=== PATIENT | female | born 1960 | race Caucasian/White ===

== ENCOUNTER 2018-05-22 00:16 | Emergency (ER) | payer OTHER, SELFPAY ==
[2018-05-22 00:17] VITALS: BP 172/144; PULSE 85; RESP 18; TEMP 36.9; O2SAT 94; BMI 40.6
--- NOTE | 2018-05-22 00:35 | ED.DCSUM_ITS ---
- ER Visit Summary Date of Service: 05/22/18 Chief Complaint: Nasal drainage, sore throat and nonproductive cough History of Present Illness: The patient is a 57 F history of prior CVA, anemia and non-Hodgkin's follow-up. Patient states last 2 months she has had a cough, intermittent sore throat and decreased hearing out of her left ear. Cough is clear to white phlegm. She denies any fever. Denies any trouble swallowing. Has clear nasal drainage. No shortness of breath. Physical Examination: Well-appearing middle-age female. Vital signs blood pressure is elevated at 172 and 144 that will be rechecked. She is afebrile. Pulse ox is 94% on room air no signs of hypoxia. No distress. H EENT exam posterior pharynx normal. Left ear canal impacted with wax. No trouble swallowing or breathing. No erythema or exudate. Neck nontender no lymphadenopathy. Lungs clear to auscultation bilaterally. Heart regular rhythm no murmur. Abdomen soft nontender. She is moving all 4 extremities. No motor deficits. Neurologically she is awake and alert. She does have dysarthria of her speech due to her prior stroke. Test Results: None Emergency Department Course and Treatment: Nurses will Place Debrox eardrops in her left ear and try to irrigate the wax out. Her URI symptoms appear to be viral or allergy related. Clear nasal drainage. Nonproductive cough with clear lungs. Treatment Plan: Patient requested Tessalon Perles for the cough. She will be discharged with eardrops for the wax. Disposition: Discharge Impression: Left ear canal cerumen impaction irrigated by nursing staff Nasal drainage This note was generated with [employer] dictation software. It may contain incorrect words, spelling, and punctuation that were not noted in review of the chart prior to signing ED Disposition - Plan for ED Patient: Chief Complaint: Cold Sx Referrals: Óscar Brager MD [Primary Care Provider] -
[2018-05-22] MEDS: Carbamide Peroxide 15 ML Bottle 5 DRP OTIC (00:48)
--- NOTE | 2018-05-22 00:55 | ED.DEP ---
ED Disposition - Plan for ED Patient: Disposition: Home or Assisted Living Chief Complaint: Cold Sx Instructions: ED URI Viral, ED Cerumen Impaction, Home Care Prescriptions: Benzonatate [Tessalon Perle] 100 mg PO Q4H PRN PRN #20 cap PRN Reason: Cough Referrals: Óscar Barger MD [Primary Care Provider] - 1 Week if not improving Additional Instructions: Place 3 eardrops in both ears 2-3 times per day. This will help dry up and clear the wax. Tessalon Perles every 4 hours as needed for cough.
[2018-05-22 01:36] VITALS: BP 120/74
[2018-05-22] MEDS: Benzonatate 100 MG Capsule PO (01:41)
--- NOTE | 2018-05-22 01:41 | ED.RN ---
PT GIVEN WRITTEN AND VERBAL INSTRUCTIONS. PT SENT HOME WITH EAR DEBROX A VERBAL ORDER FROM DR. COLÓN. EDUCATED ON USE. PT AMBULATES OUT OF DEPT WITH DAUGHTER.
== END 2018-05-22 01:42 | disposition home or self-care (01) ==
LOC: ED 01:28
PROVIDERS: Emergency Provider Emergency Medicine; Family Provider Family Medicine; PCP Family Medicine
DX: H61.22 Impacted cerumen, left ear (principal); R03.0 Elevated blood-pressure reading, without diagnosis of hypertension; I69.322 Dysarthria following cerebral infarction; Z79.82 Long term (current) use of aspirin; Z79.899 Other long term (current) drug therapy; Z86.2 Personal history of diseases of the blood and blood-forming organs and certain disorders involving the immune mechanism; Z85.72 Personal history of non-Hodgkin lymphomas
CPT/HCPCS: 99283

== ENCOUNTER 2018-11-26 19:42 | Emergency (ER) | payer SELFPAY ==
[2018-09-15 11:14] VITALS: BMI 37.5
[2018-11-26 19:43] VITALS: BP 159/104; PULSE 75; RESP 15; TEMP 36.6; O2SAT 99; BMI 40.1
--- NOTE | 2018-11-26 20:32 | CT_ITS ---
STUDY: CT BRAIN WITHOUT CONTRAST REASON FOR EXAM: Female, 58 years old. Headache for 4 and 5 days RADIATION DOSAGE (If Supplied By Facility): CTDIvol = ( 44.99 ) mGy, DLP = ( 796.11 ) mGycm TECHNIQUE: Transaxial CT imaging of the brain was performed without administration of intravenous contrast material. Individualized dose optimization techniques were used for this CT. COMPARISON: 07/18/2017 FINDINGS: Normal soft tissue structures. Normal calvarium. There is mild cerebral atrophy with widening of the extra-axial spaces and ventricular dilatation. There are areas of decreased attenuation within the white matter tracts of the supratentorial brain, consistent with microvascular disease changes. Encephalomalacia and gliosis of the left frontoparietal lobe stable since the prior study. Old lacunar infarction left basal ganglia stable. Small infarctions all of the posterior left temporal lobe is also stable. Normal brainstem. Normal cerebellum. There is no intracranial hemorrhage. There are no findings of an acute ischemic infarction. There is mucoperiosteal inflammatory disease of the paranasal sinuses consistent with moderate chronic sinusitis. CT/Brain/Head without Contrast IMPRESSION: 1. Since 07/18/2017, stable exam. No acute intracranial hemorrhage or mass effect. 2. Old left MCA territory infarctions. Left basal ganglia lacunar infarction. 3. New moderate sinusitis but no air-fluid levels. Electronically Signed: Marito Aguilar MD at 21:24 EST , Service support ,
[2018-11-26] MEDS: DiphenhydrAMINE 50 MG/ML Syringe 25 MG IV (20:47)
[2018-11-26] MEDS: Metoclopramide 10 MG/2 ML Vial IV (20:47)
[2018-11-26] MEDS: 0.9% Normal Saline 1,000 ML 1000 ML IV (20:48)
[2018-11-26 21:13] LABS: Absolute Lymphocyte Count 1.38 X10^3/ul (0.83-4.51); Absolute Neutrophil Count 9.2 X10^3/uL (2.0-7.7); Anion Gap 9 (5-15); BUN 20 mg/dL (7-18); BUN/Creat Ratio 19.4 RATIO (10-20); Basophil# 0.02 X10^3/uL; Basophil% 0.2 % (0-1); Calcium,Total 8.8 mg/dL (8.5-10.1); Chloride 108 mmol/L (98-107); Creatinine, Serum 1.03 mg/dL (0.55-1.02); EST Glomerular Filtration Rate 58 mL/min (>60); Eosinophils% 0.9 % (0-5); Est Glom Filt Rate - Afr Amer 70 mL/min (>60); Estimated Creatinine Clearance 43.83 ml/min; Glucose 146 mg/dL (74-106); Hematocrit 41.3 % (37-47); Hemoglobin 13.2 g/dl (12.0-15.0); Lymphocyte # 1.38 X10^3/ul (4.0); Lymphocyte % 12.4 % (19-41); Mean Corpuscular Hgb 27.3 pg (27.0-32.0); Mean Corpuscular Volume 85.5 fL (81-99); Mean Platelet Vol. 10.5 fl (6.2-12.0); Monocyte# 0.38 X10^3/uL; Monocyte% 3.4 % (0-10); Neutrophil # 9.24 X10^3/uL (2.7-7.7); Neutrophil % 82.7 % (47-70); Platelet Count 301 K/mm3 (150-450); Potassium 3.9 mmol/L (3.5-5.1); RBC Distribution Width CV 14.3 % (11.6-14.6); RBC Distribution Width SD 44.1 fl (35.1-43.9); Red Blood Count 4.83 M/mm3 (4.2-5.4); Sodium Level 142 mmol/L (136-145); White Blood Count 11.2 K/mm3 (4.4-11.0)
[2018-11-26 21:25] LABS: POSITIVE COUNT NO; POSITIVE DIFFERENTIAL NO; POSITIVE MORPHOLOGY NO
--- NOTE | 2018-11-26 21:25 | CT_ITS ---
STUDY: CTA OF THE BRAIN REASON FOR EXAM: Female, 58 years old. HEADACHE X 1 WEEK,ELEVATED BP AND WBC RADIATION DOSAGE (If Supplied By Facility): CTDIvol = ( 39.36 ) mGy, DLP = ( 756.60 ) mGycm TECHNIQUE: CT angiography was performed with a multi-detector CT scanner. Data acquisition was obtained from the skull base through the vertex following intravenous administration of Isovue 370 100ML IV. MIP images were reconstructed from the axial data set. Post-processing of the angiographic images was performed, with multiplanar reformation and 3D reconstruction. Individualized dose optimization techniques were used for this CT. COMPARISON: None. FINDINGS: Normal bilateral petrous carotid arteries. Normal right cavernous carotid artery with a normal supraclinoid bifurcation. Normal left cavernous carotid artery with a normal supraclinoid bifurcation. Normal right A1 segments of the anterior cerebral artery. Normal left A1 segments of the anterior cerebral artery. Normal intact anterior communicating artery (ACOM). Normal bilateral A2 segments of the anterior cerebral arteries. Normal right M1 and M2 segments of the middle cerebral arteries, with a normal M1 bifurcation. Normal left M1 and M2 segments of the middle cerebral arteries, with a normal M1 bifurcation. There is non-visualization of the right posterior communicating artery (PCOM). There is non-visualization of the left posterior communicating artery (PCOM). Normal bilateral vertebral arteries. Normal basilar artery with a normal basilar bifurcation. The visualized bilateral superior cerebellar (SCA) arteries are normal. Normal bilateral P1, P2 and visualized P3 segments of the posterior cerebral arteries. There is no demonstrated aneurysm of the [place]ark[place]. There is no demonstrated abnormality of the visualized brain. CT/CTA Head W/WO Contrast IMPRESSION: Normal clark's point of [place] without a demonstrated aneurysm or hemodynamically significant stenosis. Electronically Signed: Erin Zimmerman MD at 0:33 EST Tel , Service support ,
--- NOTE | 2018-11-26 21:25 | CT_ITS ---
STUDY: CTA NECK WITH CONTRAST REASON FOR EXAM: Female, 58 years old. Headache. RADIATION DOSAGE (If Supplied By Facility): CTDIvol = ( 39.36 ) mGy, DLP = ( 756.60 ) mGycm TECHNIQUE: CT angiography with multi-detector data acquisition was performed from the aortic arch to the skull base following intravenous administration of Isovue 370 100ML IV. MIP images were reconstructed from the axial data set. Post-processing of the angiographic images was performed, with multiplanar reformation and 3D reconstruction. Individualized dose optimization techniques were used for this CT. COMPARISON: None. FINDINGS: AORTIC ARCH: There is atherosclerotic calcific plaque formation of the aortic arch and great vessels arising from the aortic arch, without a hemodynamically significant stenosis. There is a normal origin of the brachiocephalic, left common carotid, and left subclavian arteries. RIGHT CAROTID ARTERIES: There is atherosclerotic tortuous elongation of the right common carotid artery. Normal right common carotid bulb. Normal origin of the right internal carotid (ICA) artery without a hemodynamically significant stenosis. There is atherosclerotic tortuous elongation of the cervical portion of the right internal carotid artery. Normal origin of the right external carotid artery (ECA). LEFT CAROTID ARTERIES: There is atherosclerotic tortuous elongation of the left common carotid artery. Normal left common carotid bulb. Normal origin of the left internal carotid (ICA) artery without a hemodynamically significant stenosis. There is atherosclerotic tortuous elongation of the cervical portion of the left internal carotid artery. Normal origin of the left external carotid artery (ECA). VERTEBRAL ARTERIES: Normal bilateral vertebral arteries. CT/CTA Neck W/WO Contrast IMPRESSION: No occlusions. No hemodynamically significant stenosis. Electronically Signed: Aneesh Taylor MD at 23:22 EST , Service support ,
[2018-11-26 21:31] LABS: Erythrocyte Sedimentation Rate 8 mm/hr (0-30)
--- NOTE | 2018-11-26 22:03 | ED.DCSUM_ITS ---
- ER Visit Summary Date of Service: 11/26/18 Chief Complaint: [Headache] History of Present Illness: The patient is a 58 F [presents the emergency room with complaint of headache that started a week ago. Patient states it came on gradually but it never has completely gone away. Patient rates her headache currently is a 10 out of 10. She has had nausea and vomiting that just started on the way to the emergency department tonight. Patient denies any recent illness. She denies any falls or head injuries. Patient has a history of prior stroke but she could not really tell me if it was hemorrhagic versus ischemic. Patient does complain of photophobia. Patient has had a history of migraines in the past but this feels different. Nobody else at home has similar headache and there is no concern for carbon monoxide.] Physical Examination: [HEENT-PERRLA, EOMI. Cranial nerves II through XII grossly intact. TMs clear. Mucous membranes moist. No adenopathy. Cardiovascular-regular rate and rhythm without murmur or ectopy Lungs-clear to auscultation, chest wall stable without crepitus or subcu emphysema Abdomen-normoactive bowel sounds, soft, nontender, no rebound or rigidity, no peritoneal signs. Neuro ubus-[id number] and heel ritchie testing within normal limits, negative Romberg, negative pronator drift, fundi benign Extremities-intact ?4, normal range of motion, normal pulses, atraumatic] Test Results: [CBC with differential showing 11.2, hemoglobin 13, hematocrit 41. Chemistries unremarkable. Sed rate was 8. CT scan of the brain without contrast showed old left MCA infarct without evidence of hemorrhage. CTA of the head neck ordered and pending.] Emergency Department Course and Treatment: [Patient initially was medicated with Reglan and Benadryl as well as a liter normal same fluid bolus however she continued to complain of severe headache and was given 4 mill grams of morphine.] Treatment Plan: [Care of patient turned over to evening physician awaiting re sults of CTA and reevaluation of patient.] Disposition: [Pending] Impression: [Cephalgia] This note was generated with [employer] dictation software. It may contain incorrect words, spelling, and punctuation that were not noted in review of the chart prior to signing ED Disposition - Plan for ED Patient: Referrals: Óscar Barger MD [Primary Care Provider] -
[2018-11-26] MEDS: Morphine 4 MG/ML Syringe IV (22:34)
[2018-11-26 22:37] VITALS: BP 180/93; PULSE 78; RESP 16; O2SAT 99
[2018-11-26 22:43] LABS: Bacteria 0 SEEN /hpf (None Seen); Mucous, Urine 0 SEEN /hpf (<or=2+); Red Blood Cells-Urine 0 SEEN /hpf (0-5)
[2018-11-26 22:49] LABS: Color, Urine Yellow (Yellow); Glucose, Dipstick Normal (Normal); Ketone-Dipstick Negative (Negative); Leukocyte Esterase-Dipstick 100 /ul (Negative); Nitrite-Dipstick Negative (Negative); Occult Blood-Urine Negative /ul (Negative); Protein-Dipstick 15 mg/dl (Negative); Urine Bilirubin Dipstick Negative (Negative); Urine Clarity Sl. Cloudy (Clear); Urine Urobilinogen Normal (Normal)
[2018-11-26 23:03] LABS: Squamous Epithelial Cells - UA 0-5 SEEN /hpf (5-10); White Blood Cells 5-10 SEEN /hpf (0-5)
--- NOTE | 2018-11-27 01:16 | ED.DEP ---
ED Disposition - Plan for ED Patient: Instructions: ED Cephalgia Unspecified Referrals: Óscar Barger MD [Primary Care Provider] - Curtis Hernández MD [STAFF PHYSICIAN] -
[2018-11-27 01:28] VITALS: BP 159/86; PULSE 68; RESP 16; O2SAT 99
== END 2018-11-27 01:31 | disposition home or self-care (01) ==
LOC: ED 20:58
PROVIDERS: Emergency Provider Emergency Medicine; Family Provider Family Medicine; PCP Family Medicine
DX: R51 Headache (principal); R11.2 Nausea with vomiting, unspecified; I10 Essential (primary) hypertension; Z79.82 Long term (current) use of aspirin; Z79.899 Other long term (current) drug therapy; Z86.73 Personal history of transient ischemic attack (TIA), and cerebral infarction without residual deficits; Z85.118 Personal history of other malignant neoplasm of bronchus and lung; Z85.72 Personal history of non-Hodgkin lymphomas
CPT/HCPCS: 36591; 70450; 70496; 70498; 80048; 81001; 85025; 85652; 96361; 96374; 96375; 99282; J7030; Q9967; A4216

== ENCOUNTER → 2019-03-24 09:27 | Outpatient (CLI) | payer OTHER, SELFPAY ==
--- NOTE | 2019-03-24 09:28 | NM_ITS ---
CLINICAL: 58-year-old female with reported history of lymphoma and apparent rheumatoid arthritis. WHOLE BODY 99m Tc MDP RADIONUCLIDE BONE SCINTIGRAPHY COMPARISON: None available FINDINGS: Following the intravenous administration of 26.3 mCi of 99m Tc MDP, whole body bone images reveal: 1. Intense increased radiopharmaceutical concentration is identified in the distal right femoral metaphysis. 2. Increased uptake is noted in the fifth lumbar vertebra posteriorly on the left-right, medial and lateral tibial compartments of the right knee, patellofemoral compartment of the left knee, the bilateral midfoot, the right forefoot. 3. The remaining skeletal structures are scintigraphically unremarkable with normal-appearing renal images and urinary bladder activity identified. An increase in uptake is demonstrated in the femoral and tibial components of the left knee prosthesis. Facilitated tracer distribution is visualized in the bilateral maxilla and inter-orbital aspect of the skull consistent with periostitis. NM/Bone Scan Whole Body IMPRESSION: 1. The increase in radiopharmaceutical concentration identified in the distal right femoral metaphysis may be further investigated with plain film radiography secondary to the intensity and spatial distribution of uptake. 2. Degenerative arthritis appears expressed in the fifth lumbar vertebra, bilateral midfoot, the right forefoot, tibial compartments of the right knee and patellofemoral compartment of the left knee (in the absence of patellar hardware placement). Electronically Signed: Noble Tripp DO at 23:29 EDT Tel , Service support ,
== END ==
PROVIDERS: Family Provider Family Medicine; PCP Family Medicine; Referring Provider Internal Medicine Medical Oncology; Visit Provider Internal Medicine Medical Oncology
DX: M25.561 Pain in right knee (principal); C85.95 Non-Hodgkin lymphoma, unspecified, lymph nodes of inguinal region and lower limb
CPT/HCPCS: 78306

== ENCOUNTER → 2019-03-29 08:06 | Outpatient (CLI) | payer OTHER, SELFPAY ==
--- NOTE | 2019-03-29 08:06 | CT_ITS ---
HISTORY: NHL monitoring, hypertension, . TECHNIQUE: Helically acquired images were obtained of the abdomen and pelvis following the intravenous administration of 100mL ml of Isovue 300 Iodinated contrast. 2D reformats. Oral contrast was administered. A radiation dose optimization technique was used for this scan. COMPARISON: Nuclear medicine bone scan from March 24, 2019. CT scan of the abdomen and pelvis from January 14, 2017. CT scan of the abdomen and pelvis from September 21, 2016. She FINDINGS: # of images incl. paperwork: 448 LUNG BASES: Clear. CT abdomen: Mild degenerative disc disease in lower lumbar spine facet arthropathy persists The gallbladder is slightly distended. Liver, spleen, pancreas, and adrenal glands, are normal. Indurated fat within the root of the mesentery persists. The degree of induration within this fat is less than the January 14, 2017 study. The lymphadenopathy and masses of tissue within this location on the September 21, 2016 study has greatly diminished. Hypodense mass exophytic to the inferior pole of the right kidney, likely representing a benign cyst, is unchanged. The left kidney is normal. The aorta is disease with atherosclerotic plaque, but without aneurysm or dissection. CT pelvis: No ascites is present. The uterus and ovaries are atrophic. The appendix is normal. Series 3 image 83. The bladder is decompressed. Is normal. Ingested oral contrast is all the way into the rectum CT/Abdomen/Pelvis WITH Contrast IMPRESSION: Continued indurated fat at the root of the mesentery around and inferior to the pancreas. The degree of induration of this fat is much less than September 21, 2016, and less than January 14, 2017, the most recent comparison CT. This is consistent with scarring related to the patient's non-Hodgkin's lymphoma. There are several splenule's inferior to the spleen in the left hemiabdomen. These are similar to the previous study without enlargement. Individualized dose optimization techniques were used for this CT. at 9423 Reported and signed by: Frankie Jones MD Electronically Signed: Frankie Jones MD at 21:54 EDT Tel , Service support ,
--- NOTE | 2019-03-29 08:06 | CT_ITS ---
HISTORY: NHL monitoring, hypertension, . TECHNIQUE: Helically acquired images were obtained of the chest following the intravenous administration of 100mL ml of Isovue 300 Iodinated contrast. as per pulmonary angiogram protocol with 2D MIP reconstructions. A radiation dose optimization technique was used for this scan. COMPARISON: Most recent CT scan through the chest as part of a PET/CT dated January 11, 2017. Nuclear medicine bone scan from March 24, 2019. CT scan of the abdomen and pelvis from January 14, 2017. PET CT from January 11, 2017. FINDINGS: # of images incl. paperwork: [id number] Left chest wall left IJ access single-lumen port. The catheter tip may have been slightly pulled back. By believe it is within the brachiocephalic vein. There is a loop of catheter within the left neck near the venotomy site. Lungs are clear but for trace basilar atelectasis. No effusions. Within the thoracic spinebony alignment is normal. Vertebral body height is normal. Multilevel degenerative disc disease is mild. Disc disease is manifested by loss of disc height, endplate sclerosis, and small anterior enthesophytes Facets are well aligned. No rib lesions are perceived. Heart is not enlarged. Thoracic aorta is normal. No aneurysms, stenoses, dissections, nor occlusions. No axillary or mediastinal adenopathy. No pulmonary emboli. CT/Chest WITH Contrast IMPRESSION: No pulmonary embolism, aortic aneurysm, or aortic dissection. No evidence for non-Hodgkin's lymphoma within the chest Individualized dose optimization techniques were used for this CT. at 2147 Reported and signed by: Frankie Jones MD Electronically Signed: Frankie Jones MD at 21:46 EDT Tel , Service support ,
== END ==
PROVIDERS: Family Provider Family Medicine; PCP Family Medicine; Referring Provider Internal Medicine Medical Oncology; Visit Provider Internal Medicine Medical Oncology
DX: C85.95 Non-Hodgkin lymphoma, unspecified, lymph nodes of inguinal region and lower limb (principal)
CPT/HCPCS: 71260; 74177; Q9967; A4216

== ENCOUNTER → 2019-04-14 08:56 | Outpatient (CLI) | payer SELFPAY ==
[2019-04-06 15:05] VITALS: BMI 40.1
--- NOTE | 2019-04-14 08:57 | RAD_ITS ---
STUDY: X-RAY - RIGHT FEMUR REASON FOR STUDY: Female, 58 years old. Knee and hip pain. History of bone cancer, now in remission. TECHNIQUE: Frontal and lateral view(s) of the femur on 4 films. COMPARISON: None. FINDINGS: There is degenerative periarticular spurring of the femoral condyles and tibial plateaus, as well as degenerative periarticular spurring at the apex of the patella. There is tricompartmental degenerative narrowing of the knee joint spaces and slight lateral subluxation of the tibia relative to the distal femur. Normal visualized soft tissue structure. There is no demonstrated knee joint effusion. There is no demonstrated fracture or destructive process. RAD/Femur Min 2 Views IMPRESSION: Tricompartmental degenerative arthrosis of the right knee, as noted. The right femur is otherwise unremarkable. Electronically Signed: Carlos Waldrop MD at 13:29 EDT , Service support ,
== END ==
PROVIDERS: Family Provider Family Medicine; PCP Family Medicine; Referring Provider Orthopaedic Surgery; Visit Provider Orthopaedic Surgery
DX: M25.561 Pain in right knee (principal)
CPT/HCPCS: 73552

== ENCOUNTER 2019-04-14 10:57 | Emergency (ER) | payer OTHER, SELFPAY ==
[2019-04-14 10:08] VITALS: BMI 40.1
[2019-04-14 10:58] VITALS: BP 171/97; PULSE 73; RESP 17; TEMP 36.8; O2SAT 95; BMI 40.4
--- NOTE | 2019-04-14 11:15 | ED.DCSUM_ITS ---
History of Present Illness Chief Complaint: Lower Extremity Injury Detail of Chief Complaint: Right leg infection, concern for DVT Informant: Patient Onset: Days, - - 3-4 Context: Gradual Onset Current Severity: Mild Maximum Severity: Mild Narrative: Patient reports having some flea bites on her legs that she has been scratching. She has an area that appears to be infected. She saw an orthopedic surgeon today due to a history of cancer and increased uptake on a recent scan along her right knee. It appears the patient has osteoarthritis. Because she has an infe ction on her leg injections into the knee were delayed at this time. Patient went to the now clinic where there was concern for possible DVT so she was sent to the emergency room. 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 Status: Acute (4) Osteoarthritis of both knees Status: Acute (5) Hypertension Status: Chronic Past Medical History - Allergies and Home Meds Allergies/Adverse Reactions: Allergies No Known Allergies Allergy (Verified 04/14/19 10:57) Primary Care Physician: Mejia Garces DO [STAFF PHYSICIAN] - As Needed Óscar Barger MD [Primary Care Provider] - 1-2 Weeks Prior records reviewed: Yes Past Medical History: - - Reviewed Surgical History: arthroscopy, knee, rotator cuff repair Lives: With Family Smoking Status: Never smoker Review of Systems General: Denies: Chills, Fever Cardiovascular: Denies: Chest pain Respiratory: Denies: Dyspnea, Cough Musculoskeletal: Reports: Arthralgias Skin: Reports: Wounds Physical Exam Vital Signs/Narrative: Vital Signs Temp Pulse Resp BP Pulse Ox 04/14/19 10:58 98.3 F 73 17 171/97 H 95 Inital Vital Signs reviewed: Yes General: Well nourished, Well developed ENT: Moist mucous membranes Cardiovascular: Regular rate, Regular rhythm Respiratory: No distress, CTA bilaterally Abdomen: Soft, Nontender Extremities: - - Patient has a 1.5 cm round scabbed lesion on the medial right lower calf. There are also 2 pustules noted. There is mild erythema around the area measuring 9 x 7 cm. No posterior calf tenderness or palpable cords are noted. Neurological: Alert, - - Slow speech noted from prior CVA, unchanged from baseline Psychological: Normal affect Diagnostic/Tx/Re-eval Venous ultrasound of the leg shows no evidence of DVT. - Medical Decision Making Patient presents the scabbed wound along with 2 pustules to the medial right lower leg with surrounding mild cellulitis. She was treated with a course of Bactrim and Keflex. ED Disposition - Plan for ED Patient: Disposition: Home or Assisted Living Instructions: Cellulitis Prescriptions: Smz/Tmp Ds [Bactrim Ds] 1 tab PO BID #14 tab Prescription Printed Smz/Tmp Ds [Bactrim Ds] 1 tab PO BID #14 tab Transmission Status: Pending to [facility] Cephalexin [Keflex] 500 mg PO Q6 #40 cap Prescription Printed Cephalexin [Keflex] 500 mg PO Q6 #40 cap Transmission Status: Pending to [facility] Referrals: Óscar Barger MD [Primary Care Provider] - 1-2 Weeks Mejia Garces DO [STAFF PHYSICIAN] - As Needed
--- NOTE | 2019-04-14 11:15 | VDLE_ITS ---
Reason For Study: pain RIGHT GSV is normal. CFV is compressible, spontaneous, phasic, competent and demonstrates normal augmentation. FV is compressible, spontaneous, phasic, competent and demonstrates normal augmentation. POP V is compressible, spontaneous, phasic, competent and demonstrates normal augmentation. T/P Trunk is compressible. PTV is compressible. RT PerV is compressible. Procedure Exam performed portable in ED. The exam was diagnostic. A preliminary report was called and/or faxed to Dr. Partida. Interpretation Summary There is no evidence of right lower extremity deep vein thrombosis. Right greater saphenous vein appears patent and compressible segmentally. Ordering Physician: Tracy Partida Performed By: Iker Rico RVT
[2019-04-14 11:36] VITALS: RESP 14
[2019-04-14] MEDS: Smz/Tmp Ds Tablet 1 TABLET PO (12:33)
[2019-04-14] MEDS: Cephalexin 250 MG Capsule 500 MG PO (12:33)
== END 2019-04-14 12:36 | disposition home or self-care (01) ==
PROVIDERS: Emergency Provider Emergency Medicine; Family Provider Family Medicine; PCP Family Medicine
DX: S81.851A Open bite, right lower leg, initial encounter (principal); L03.115 Cellulitis of right lower limb; W57.XXXA Bitten or stung by nonvenomous insect and other nonvenomous arthropods, initial encounter; Y93.9 Activity, unspecified; Y92.9 Unspecified place or not applicable; M17.0 Bilateral primary osteoarthritis of knee; I10 Essential (primary) hypertension; Z85.6 Personal history of leukemia; Z85.72 Personal history of non-Hodgkin lymphomas; Z86.73 Personal history of transient ischemic attack (TIA), and cerebral infarction without residual deficits; Z79.82 Long term (current) use of aspirin; Z79.899 Other long term (current) drug therapy
CPT/HCPCS: 93971; 99283

== ENCOUNTER → 2019-04-26 06:12 | Outpatient (CLI) | payer OTHER, SELFPAY ==
[2019-04-14 10:58] VITALS: BMI 40.4
--- NOTE | 2019-04-26 06:15 | MRI_ITS ---
STUDY: MRI RIGHT KNEE REASON FOR EXAM: Female, 58 years old. Knee pain and swelling, abnormal bone scan, history of lymphoma. TECHNIQUE: Standardized fat and water weighted pulse sequences were obtained in all 3 orthogonal planes. COMPARISON: X-ray 04/14/2019, bone scan 03/24/2019 FINDINGS: Maceration of the posterior horn and body of the medial meniscus. Medial compartment failure with full-thickness chondral loss of the weightbearing medial femoral condyle and medial tibial plateau with bone on bone florid osteophyte formation. Normal medial collateral ligamentous complex (MCL). Normal distal semimembranosus, gracilis and semitendinosus tendons. Maceration of the body and posterior horn of the lateral meniscus. Lateral compartment failure with full-thickness chondral loss of the lateral femoral condyle lateral tibial plateau with subchondral cyst formation of the lateral femoral condyle and mild edema of the lateral femoral condyle lateral tibial plateau with florid osteophyte formation. Normal proximal tibiofibular articulation. Normal lateral collateral (fibular) ligament. Normal popliteus tendon. Normal biceps femoris tendon. Normal anterior cruciate ligament (ACL). Normal posterior cruciate ligament (PCL). Normal congruent patellofemoral articulation. Normal hyaline cartilage of the patellofemoral compartment. Normal medial and lateral patellar retinaculum. Normal quadriceps tendon. Normal patellar tendon. Normal Hoffa's fat pad. Moderate joint effusion with the thickened enhancing synovium suggestive of synovitis. The soft tissues are unremarkable. The otherwise visualized osseous structures are unremarkable. MRI/Lower Ext Joint Only W/WO Cont IMPRESSION: Severe arthrosis with medial and lateral compartment failure with moderate joint effusion with synovitis. No marrow replacing lesion. Electronically Signed: Noble Mina MD at 10:29 EDT Tel , Service support ,
[2019-04-26 06:43] LABS: Creatinine, Serum 1.17 mg/dL (0.55-1.02); EST Glomerular Filtration Rate 50 mL/min (>60); Est Glom Filt Rate - Afr Amer 61 mL/min (>60)
== END ==
PROVIDERS: Family Provider Family Medicine; PCP Family Medicine; Referring Provider Orthopaedic Surgery; Visit Provider Orthopaedic Surgery
DX: M17.0 Bilateral primary osteoarthritis of knee (principal); M25.561 Pain in right knee
CPT/HCPCS: 36415; 73723; 82565; A9575; J7030

== ENCOUNTER → 2019-06-21 12:40 | Outpatient (CLI) | payer OTHER, SELFPAY ==
[2019-05-30 14:41] VITALS: BMI 39.6
--- NOTE | 2019-06-21 12:49 | RAD_ITS ---
STUDY: X-RAY - LUMBAR SPINE REASON FOR EXAM: Female, 58 years old. Lower extremity pain. TECHNIQUE: AP and lateral view(s) of the lumbar spine were obtained. COMPARISON: None FINDINGS: Normal lumbar lordosis. There is no substantial scoliosis. There is a normal alignment of the vertebrae. Mild degree of anterior spondylosis at the L3-L4 and L4-L5 levels. Mild degree of disc space narrowing at the L4-L5 and L5-S1 levels. The soft tissue structures are unremarkable. RAD/Lumbar Spine 2 or 3 Views IMPRESSION: Degenerative changes of the spine, as detailed above. Electronically Signed: Etienne Chavez, at 15:43 EDT , Service support ,
== END ==
PROVIDERS: Family Provider Internal Medicine; PCP Internal Medicine; Referring Provider Anesthesiology Pain Medicine; Visit Provider Anesthesiology Pain Medicine
DX: M79.606 Pain in leg, unspecified (principal)
CPT/HCPCS: 72100

== ENCOUNTER → 2019-06-27 09:55 | Outpatient (CLI) | payer OTHER, SELFPAY ==
[2019-06-27 09:20] VITALS: BMI 39.4
[2019-06-27 12:48] LABS: Anion Gap 8 (5-15); BUN 26 mg/dL (7-18); BUN/Creat Ratio 18.3 RATIO (10-20); Chloride 108 mmol/L (98-107); Creatinine, Serum 1.42 mg/dL (0.55-1.02); EST Glomerular Filtration Rate 40 mL/min (>60); Est Glom Filt Rate - Afr Amer 48 mL/min (>60); Glucose 103 mg/dL (74-106); Potassium 4.2 mmol/L (3.5-5.1); Sodium Level 142 mmol/L (136-145)
== END ==
PROVIDERS: Family Provider Internal Medicine; PCP Internal Medicine; Visit Provider Internal Medicine
DX: N18.3 Chronic kidney disease, stage 3 (moderate) (principal)
CPT/HCPCS: 36415; 80048

== ENCOUNTER → 2019-08-16 10:34 | Outpatient (CLI) | payer OTHER, SELFPAY ==
[2019-08-01 08:18] VITALS: BMI 39.4
--- NOTE | 2019-08-16 10:35 | RAD_ITS ---
STUDY: X-RAY - RIGHT KNEE REASON FOR EXAM: Female, 59 years old. Pain and swelling. TECHNIQUE: 4 view(s) of the knee. COMPARISON: None. FINDINGS: Normal visualized distal femur. Normal visualized proximal tibia and fibula. There is arthrosis of the proximal tibiofibular articulation. There is no acute fracture, dislocation or destructive osseous pathology. There is severe degenerative arthrosis of the medial femorotibial compartment with severe joint space narrowing. There is severe degenerative arthrosis of the lateral femorotibial compartment with severe joint space narrowing. There is severe degenerative arthrosis of the patellofemoral articulation. There is no demonstrated joint effusion. The soft tissue structures are unremarkable. RAD/Knee 4 or More Views IMPRESSION: Marked degenerative changes of the knee without acute fracture or dislocation. Electronically Signed: Bladimir Garcia DO at 17:47 EST Tel [phone], Service support ,
== END ==
PROVIDERS: Family Provider Family Medicine; PCP Internal Medicine; Referring Provider Orthopaedic Surgery; Visit Provider Orthopaedic Surgery
DX: M25.561 Pain in right knee (principal)
CPT/HCPCS: 73564

== ENCOUNTER → 2019-08-24 09:27 | Outpatient (CLI) | payer OTHER, SELFPAY ==
[2019-08-24 08:54] VITALS: BMI 39.4
--- NOTE | 2019-08-24 10:04 | EKG12_ITS ---
Test Reason : PRE-OP Blood Pressure : / mmHG Vent. Rate : 070 BPM Atrial Rate : 070 BPM P-R Int : 150 ms QRS Dur : 088 ms QT Int : 436 ms P-R-T Axes : 049 -27 052 degrees QTc Int : 470 ms Normal sinus rhythm Minimal voltage criteria for LVH, may be normal variant Borderline ECG Confirmed by KAYLA MEYER, RUDI ([id number]), desk editor ISHA SHIPMAN ([id number]) on 08/29/2019 1:05:06 PM Referred By: Dayron Randle Confirmed By:KASSY GARZA MD
[2019-08-24 12:34] LABS: Absolute Lymphocyte Count 1.51 X10^3/uL (0.83-4.51); Basophil# 0.08 X10^3/uL; Basophil% 0.9 % (0-1); Eosinophil# 0.24 X10^3/uL; Eosinophils% 2.8 % (0-5); Hematocrit 40.3 % (37-47); Lymphocyte # 1.51 X10^3/ul (4.0); Lymphocyte % 17.9 % (19-41); Mean Corp Hgb Conc 32.3 g/dL (32-36); Mean Corpuscular Hgb 28.6 pg (27.0-32.0); Mean Corpuscular Volume 88.6 fL (81-99); Mean Platelet Vol. 11.3 fl (6.2-12.0); Monocyte# 0.59 X10^3/uL; NRBC Flagged by Analyzer 0 % (0-5); Neutrophil # 5.99 X10^3/uL (2.7-7.7); Platelet Count 314 K/mm3 (150-450); RBC Distribution Width CV 13.2 % (11.6-14.6); RBC Distribution Width SD 42.6 fl (35.1-43.9); Red Blood Count 4.55 M/mm3 (4.2-5.4); White Blood Count 8.4 K/mm3 (4.4-11.0)
[2019-08-24 12:49] LABS: ALB/GLOB Ratio 1.4 RATIO (0.9-2.4); AST(SGOT) 14 U/L (15-37); Alanine Aminotransfer ALT/SGPT 22 U/L (13-56); Albumin, Serum 3.8 g/dL (3.2-5.0); Alkaline Phosphatase 109 U/L (45-117); Anion Gap 7 (5-15); BUN 16 mg/dL (7-18); Calcium,Total 8.9 mg/dL (8.5-10.1); Chloride 108 mmol/L (98-107); Creatinine, Serum 1.14 mg/dL (0.55-1.02); EST Glomerular Filtration Rate 52 mL/min (>60); Est Glom Filt Rate - Afr Amer 62 mL/min (>60); Globulin 2.8 g/dL (2.2-4.2); Glucose 111 mg/dL (74-106); Potassium 3.9 mmol/L (3.5-5.1); Protein, Total 6.6 g/dL (6.4-8.2); Sodium Level 142 mmol/L (136-145); Thyroid Stim Hormone (TSH) 2.78 uIU/mL (0.358-3.74)
== END ==
PROVIDERS: Family Provider Internal Medicine; PCP Internal Medicine; Referring Provider Nurse Practitioner Family; Visit Provider Nurse Practitioner Family
DX: M17.11 Unilateral primary osteoarthritis, right knee (principal)
CPT/HCPCS: 36415; 80053; 84443; 85025; 93005

== ENCOUNTER 2019-09-12 10:13 | Observation (INO) | payer OTHER, SELFPAY ==
[2019-08-16 11:53] VITALS: BMI 39.4
[2019-09-01 15:34] VITALS: BMI 36.1
[2019-09-05 08:41] VITALS: BP 149/71; PULSE 72; RESP 16; TEMP 37.4; O2SAT 98; BMI 38.5
[2019-09-12] VITALS (12 sets, daily range): BP systolic 117–154; BP diastolic 59–81; PULSE 71–85; RESP 16–18; TEMP 36.4–36.9; O2SAT 90–100; BMI 39.1
[2019-09-12] MEDS: Scopolamine 1mg/72hr Patch 1 PATCH TRANSDERM. (06:15)
[2019-09-12] MEDS: Gabapentin 600 MG Tablet PO (06:59)
[2019-09-12] MEDS: Magnesium Sulfate 4gm/100mL 4 GM/100 ML IV.SOLN. IV (06:59)
[2019-09-12] MEDS: Acetaminophen 500 MG Tablet 1000 MG PO ×3 (07:00→21:06)
[2019-09-12] MEDS: Lactated Ringers 1,000 ML 100 ML IV (07:03)
--- NOTE | 2019-09-12 07:31 | PCM.HP.BLA ---
History and Physical Date of Admission: 09/12/19 Intake Vital Signs 08/16/19 Body Mass Index (BMI) 39.4 Intake Visit Reasons: right knee Is patient in pain?: Yes Pain scale (1-10): 9 Allergies No Known Allergies Allergy (Verified 08/16/19 11:53) Medications aspirin 325 mg tablet,delayed release 325 mg PO DAILY tab 05/30/19 [History Confirmed 08/16/19] citalopram 40 mg tablet 40 mg PO DAILY #90 tab 05/30/19 [Rx Confirmed 08/16/19] dicyclomine 20 mg tablet 20 mg PO BID #180 tab 05/30/19 [Rx Confirmed 08/16/19] fluticasone propionate 50 mcg/actuation nasal spray,suspension 2 spray INTRANASAL DAILY 05/30/19 [History Confirmed 08/16/19] multivitamin tablet 1 tab PO DAILY 05/30/19 [History Confirmed 08/16/19] simvastatin 10 mg tablet 10 mg PO QHS #90 tab 05/30/19 [Rx Confirmed 08/16/19] amlodipine 5 mg tablet 5 mg PO DAILY #30 tab 06/27/19 [Rx Confirmed 08/16/19] tramadol 50 mg tablet 50 mg PO QHS 06/27/19 [History Confirmed 08/16/19] sumatriptan 25 mg tablet See Rx Instructions .ROUTE .COMPLEX #20 tab 07/06/19 [Rx Confirmed 08/16/19] bedside commode #1 ea 08/01/19 [Rx Confirmed 08/16/19] blood pressure monitor kit See Rx Instructions .ROUTE .MEDSUPPLY #1 ea 08/01/19 [Rx Confirmed 08/16/19] compression stocking,knee high,regular,large circumfer. See Rx Instructions .ROUTE .MEDSUPPLY #2 ea 08/01/19 [Rx Confirmed 08/16/19] tramadol 50 mg tablet 50 mg PO Q8H PRN #42 tab 08/16/19 [Rx Confirmed 08/16/19] [facility] Medical History (Updated 06/27/19 @ 12:47 by Berto Najera MD) Colitis (Chronic) Non-Hodgkin lymphoma in remission (Inactive) Limb weakness (Chronic) Difficulty balancing (Chronic) Knee pain (Chronic) Severe headache (Chronic) History of stroke (Resolved) Stroke (Resolved) Enteritis (Chronic) Rhinitis (Chronic) Hyperlipidemia (Chronic) Depressive disorder (Chronic) Surgical History (Updated 05/30/19 @ 14:57 by Ariana Moe) History of delivery (Acute) History of colonoscopy (Acute) History of total left knee replacement (Acute) History of (Inactive) History of tonsillectomy (Inactive) History of total left knee replacement (Inactive) S/P left rotator cuff repair (Inactive) S/P right knee arthroscopy (Inactive) Family History (Updated 12/24/17 @ 13:36 by Consuelo Carrillo) Father Hypertension CVA (cerebral vascular accident) Mother Diabetes Hypertension CVA (cerebral vascular accident) Social History (Updated 08/16/19 @ 15:08 by Mejia Garces DO) Smoking Status: Never smoker alcohol intake: never substance use type: does not use what type of physical activity do you participate in: none HPI right knee: Details: Parts of this documentation were recorded by a scribe, this documentation accurately reflects the service provided and the decisions made by me, Mejia Garces DO 08/16/19 2136. BRYAN WEISS is a 59 year old F here today for right knee pain that is constant, she is using tramadol nightly prescribed by Dr. Montiel. She is ambulating with an antalgic gait and lacks full extension with ambulation. She complains of pain that increases with activity and especially with stairs. Denies numbness, tingling or other associated symptoms. Patient does take regular strength Aspirin daily. 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 ROS Musc Reports as per HPI, Reports abnormal walking, Reports joint pain, Reports limited joint movement, Denies numbness, Reports stiffness, Denies tingling Skin/Breast Reports system reviewed and no additional complaints, except as docu Neuro Yes system reviewed and no additional complaints, except as docu, Yes as per HPI, Yes abnormal walking, No numbness, No tingling Ortho Exam Right Knee Skin/Wound: No erythema, No ecchymosis, No swelling Homans Sign: No 1+: Effusion Knee ROM: No ROM-Extension -20 to 0 (32), No ROM-Flexion 0-140 (80) Examination: Yes Med jt line tenderness, Yes Lat jt line tenderness, Yes Crepitus, Yes Pain with flexion Stability: NML: Anterior Drawer, NML: Posterior Drawer, NML: Valgus 30, NML: Varus 30 Patella Translation: 1 Apprehension with Lateral Translation: No KNEE: Neuro intact, pulses 1 out of 4 bilaterally (faint) General: Awake alert no acute distress Psychologic: Mood appropriate cooperative Left Knee Patella Translation: 1 Supplemental Info 08/16/2019 x-ray right knee severe tricompartmental DJD [id number] joint space collapse large bone spurs Assessment & Plan Problems 1. Primary osteoarthritis of right knee M17.11 Plan Explained that she has bone on bone OA noted in all compartments. Reviewed the TKA procedure. REviewed the options for treatment of her ankle and foot OA and she can try a brace during the recovery from TKA. Due to her stiffness she is likely to require aggressive work on rom post op to get rom in the first 6wks or she may need DENISE, h/o of DENISE post left TKA. Instructed to d/c aspirin one week prior to surgery and after surgery begin 81mg aspirin daily with the anticoagulant. Reviewed the efficacy of pain medications post op is greater with less use pre op but will prescribe tramadol today. Risks, benefits and alternatives of surgery reviewed including but not limited to bleeding, infection, nerve, artery and/or tissue damage, fracture, VTE, mechanical feel of the knee, continued pain, stiffness and expected post-operative course. Follow up postop or sooner if pain, swelling, numbness or associated symptoms, or concerns develop. All questions answered. Patient in agreement of plan. Orders Orders: Knee 4 or More Views Today M25.561 Medications New: tramadol 1-2 tabs every 8 hrs as needed do not take within 24 hrs of sumatriptan 50 mg PO Q8H PRN 42 tabs 0RF M17.10 Coding Level of Care Code Off vis,est,level 4 Diagnoses Primary osteoarthritis of right knee M17.11 ??Osteoarthritis type: primary I have re-examined the patient. There are no clinical changes since date of exam
[2019-09-12] MEDS: Cefazolin 2 GM in 0.9% Normal Saline 100 ML IV (08:15)
[2019-09-12] MEDS: Lidocaine/D5W 2,000 MG/250 ML IV.SOLN 2000 MG (08:55)
[2019-09-12 09:05] LABS: Bedside Glucose 119 mg/dL (70-110)
[2019-09-12] MEDS: Bupivacaine 0.5% PF 10 ML VIAL (09:35)
[2019-09-12] MEDS: Betamethasone/Betamethasone 30 MG/5 ML Vial (09:35)
[2019-09-12] MEDS: Epinephrine (1 mg/ml) 1 MG/ML VIAL (09:35)
[2019-09-12] MEDS: 0.9% Normal Saline (Pres. free 10 ML Vial (09:35)
--- NOTE | 2019-09-12 10:20 | OP.PCM_ITS ---
Report of Operation Date of Procedure: 09/12/19 Description of Surgical Findings:: Preoperative diagnosis: Right knee DJD Postoperative diagnosis: Same Procedure: Right total knee arthroplasty Implant: [employer] cemented right femoral component size 3, cemented tibial baseplate size 3, cemented asymmetric patella size 35, polyethylene X3 size 11 CS Anesthesia: General with adductor canal block Tourniquet time: 60 minutes at 300 mmHg Complications: None Condition: Stable to PACU Estimated blood loss: 25 cc Indication for procedure: This is a 59-year-old female with long standing degenerative joint disease of the knee who has failed conservative treatment and wished to proceed with elective total knee arthroplasty. Risk benefits and alternatives were reviewed including; risk of bleeding, infection, nerve artery and tissue damage, continued pain, postoperative stiffness, venous thromboembolism, need for postoperative rehabilitation, mechanical feel to the knee, and expected postoperative course. Procedure: The patient was met in the preoperative holding area. The operative extremity was identified by both patient and physician and was marked. Patient was met by anesthesia. An adductor canal block was placed by anesthesia postoperatively the patient was brought back to the operating room on a wheeled cart and transferred to the operating table in the supine position. Anesthesia was started. A well-padded tourniquet was placed on the operative extremity. The patient was prepped and draped in the usual sterile fashion. A timeout was called to ensure the proper patient procedure and extremity were being contemplated. An Esmarch was used to exsanguinate the extremity. The tourniquet was inflated. A 10 blade scalpel was used to make a midline incision down through the skin and subcutaneous tissue. Skin retractors placed. Bovie was used to perform meticulous hemostasis. full-thickness flaps were elevated medial and lateral along the joint capsule. A deep blade scalpel was used to perform a medial parapatellar arthrotomy. The knee was brought to full extension. A Bovie was used to release the soft tissues off the most proximal aspect of the medial tibial plateau a three-quarter inch curved osteotome was also used for this process. The infrapatellar fat pad was excised. The fat pad was excised partially anterior lateral portion the anterior medial was elevated from the femur. the patella was everted. The knee was brought into flexion. An intramedullary drill was used followed by flexible intramedullary guide sylvia. The distal femoral cutting block was placed and set to remove 10 mm of bone and 5 degrees of valgus. The block was secured with pins and an oscillating saw was used to complete the distal femoral cut. During this, and all bony cuts retractors were used to protect the collateral ligaments. At this point a femoral sizer was used to measure the AP dimension of the femur. The sizer block was pinned parallel to the epicondylar access for external rotation. The sizing block was removed and the appropriately sized 4-in-1 cutting block was placed over the previously made pinholes. It was checked with an tammy wing and the block was secured with pins. An oscillating saw was used to complete the anterior cut followed by the posterior cut followed by the posterior chamfer cut followed by the anterior chamfer cut. The block was removed as well as the fragments. A ronguer was used to remove excess osteophytes. The medial and lateral meniscus were excised as well as the ACL. At this point a PCL retractor was placed and an intramedullary drill was passed down the tibial canal followed by a solid intramedullary guide sylvia. The tibial cutting block was attached and set to remove 9 mm of bone from the high side. This was checked with an external alignment drop sylvia for slope and tilt. It was pinned into place. An oscillating saw was used to complete the tibial plateau cut and the block was removed. A large osteotome was used to elevate the fragment and a Elli and a Bovie were used to free the fragment from the surrounding soft tissue. A rongeur was once again used to remove osteophytes a lamina lithographic stripper was used to evaluate the posterior capsular structures. A three-quarter inch curved osteotome was used to remove posterior osteophytes. A spacer block was inserted in both extension and flexion to ensure adequate spacing. Trials were inserted full extension and flexion were achieved in varus and valgus stability throughout range of motion were seen, balancing techniques were performed. At this point the attention was turned towards the patella. A caliper was used to ensure sufficient bone stock to remove 10 mm of bone. A reamer was used to perform this task. Lug holes were made for the appropriate-sized patella. The patella trial was inserted and there was good patellar tracking with knee range of motion. The tibial baseplate was allowed to float into rotation and was marked on the tibial plateau with a Bovie. Lug holes were made in the femur and trials were removed. The tibial baseplate was then sized and its preparation was completed with a fin punch. The knee was thoroughly irrigated. A posterior capsular injection was performed with our standard cocktail. The knee was bro ught into flexion and irrigated again. The tibial baseplate was cemented. Excess cement was removed with curettes. The polyethylene component was inserted. The femoral component was cemented. The knee was brought into full extension and placed on a bump. The patellar component was cemented. At this point a Betadine rinse was placed and thoroughly irrigated after a few minutes. This was followed by an Iricept rinse which was allowed to sit for 1 minute and then thoroughly irrigated.At this point all gloves were changed. The knee was thoroughly irrigated the joint capsule was closed with #1 Ethibond. Tourniquet was let down followed by 0 Vicryl and 2-0 Vicryl in the subcutaneous tissues. followed by alfa in the skin. Dressing was applied in the form of Mepilex silver dressing web roll and an Kirt wrap from the foot to the groin. The patient tolerated the procedure well, all counts were correct patient was brought back to the PACU in stable condition.
--- NOTE | 2019-09-12 10:48 | RAD_ITS ---
STUDY: X-RAY - RIGHT KNEE REASON FOR EXAM: Female, 59 years old. Total knee replacement. TECHNIQUE: 2 view(s) of the knee. COMPARISON: None. FINDINGS: The patient is status post total knee replacement. There is good alignment. Postoperative soft tissue changes. RAD/Knee 1 or 2 Views IMPRESSION: Total knee replacement. There is good alignment. Postoperative soft tissue changes. Electronically Signed: Etienne Chavez, at 14:45 EST , Service support ,
[2019-09-12] MEDS: Cefazolin 1 GM/50 ML BAG IV ×2 (11:44→18:51)
[2019-09-12] MEDS: Lactated Ringers 1,000 ML 125 ML IV ×2 (11:44→21:09)
[2019-09-12] MEDS: oxyCODONE 5 MG Tablet PO ×2 (15:09→21:06)
[2019-09-12] MEDS: Senna/Docusate Sodium 1 Tablet 2 TABLET PO (21:07)
[2019-09-12] MEDS: Dicyclomine 10 MG Capsule 20 MG PO (21:08)
[2019-09-12] MEDS: Atorvastatin Calcium 10 MG Tablet 5 MG PO (21:08)
[2019-09-13] MEDS: Cefazolin 1 GM/50 ML BAG IV (03:28)
[2019-09-13] MEDS: oxyCODONE 5 MG Tablet PO ×3 (03:34→13:14)
[2019-09-13 03:36] VITALS: BP 139/71; PULSE 70; RESP 16; TEMP 37.3; O2SAT 99
[2019-09-13 04:03] LABS: Hematocrit 33.5 % (37-47); Hemoglobin 11.2 g/dL (12.0-15.0); Mean Corp Hgb Conc 33.4 g/dL (32-36); Mean Corpuscular Hgb 29.2 pg (27.0-32.0); Mean Corpuscular Volume 87.2 fL (81-99); Mean Platelet Vol. 10.8 fl (6.2-12.0); Platelet Count 271 K/mm3 (150-450); RBC Distribution Width CV 13.2 % (11.6-14.6); RBC Distribution Width SD 41.7 fl (35.1-43.9); Red Blood Count 3.84 M/mm3 (4.2-5.4); White Blood Count 15.6 K/mm3 (4.4-11.0)
[2019-09-13 04:05] LABS: Anion Gap 7 (5-15); BUN 16 mg/dL (7-18); BUN/Creat Ratio 14.7 RATIO (10-20); Calcium,Total 8.3 mg/dL (8.5-10.1); Chloride 108 mmol/L (98-107); Creatinine, Serum 1.09 mg/dL (0.55-1.02); EST Glomerular Filtration Rate 54 mL/min (>60); Est Glom Filt Rate - Afr Amer 66 mL/min (>60); Glucose 158 mg/dL (74-106); Potassium 4.5 mmol/L (3.5-5.1); Sodium Level 141 mmol/L (136-145)
[2019-09-13] MEDS: Acetaminophen 500 MG Tablet 1000 MG PO ×2 (06:05→13:15)
[2019-09-13] MEDS: 0.9% Saline Lock 10 ML Syringe IV ×2 (06:05→14:46)
[2019-09-13] MEDS: APIXABAN 2.5 MG TABLET PO (06:05)
[2019-09-13 10:45] VITALS: BP 153/72; PULSE 76; RESP 16; TEMP 36.8; O2SAT 97
[2019-09-13] MEDS: Dicyclomine 10 MG Capsule 20 MG PO (10:47)
[2019-09-13] MEDS: amLODIPine 5 MG Tablet PO (10:48)
[2019-09-13] MEDS: Senna/Docusate Sodium 1 Tablet 2 TABLET PO (10:48)
--- NOTE | 2019-09-13 11:49 | CASEMGMT ---
RN CM Assessment Presentation: RTKR Intro role of CM and purpose of RN CM assessment to patient in room. Pt is awake, alert and able to participate in assessment. Pt has difficulty word finding, but given time and encouragement, able to communicate. Demographics, PCP and Pharmacy verified. 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 will be remaining home with pt, and RN CM spoke with pt regarding her recovery and needing family assistance for so she does not injure herself postoperatively. Pt states she has spoken with her children. PCP: Dr. Najera Specialists: sammy Brown Preferred [facility]acy: [facility] Insurance: [id number] Prescription Benefit: yes LNOK: and son listed Living Arrangements: Lives in one story home, ramp being placed per PT notes. Pt was independent prior to surgery, but is recommended to have wheeled walker on discharge. Transportation: DME: cane, shower bench. PT will need wheeled walker, raised toilet seat, grab bars and toilet side rails. Script for walker faxed to [employer] (able to take insurance per [place] @ [employer]). Other equipment will need to be bought by family. HHC: Pt is agreeable to HHC. List reviewed with pt. Very limited due to insurance. [facility] states [facility] take insurance and will review referral. Clinical, Home care order for RN/PT/OT faxed. [facility] PH: FX: Patient DC goals: Home with Home care DC PLAN: anticipate Home with Home Health. Ankit JUDD RN AC
--- NOTE | 2019-09-13 12:28 | DCINST_ITS ---
Discharge Diet: No Restrictions Discharge Activity: Return to Normal Activity Weight Bearing Status: Weight bearing as tolerated Call your doctor if you observe: Shortness of breath, Chest pain Additional Instructions: Ice and elevate next week while not ambulating. Encourage ambulation weightbearing as tolerated. Encourage FULL knee extension and flexion 1 time EVERY time you get up and down and MULTIPLE times per day. Begin showering postop day #3. Remove the dressing prior to shower gently wash with warm water and antibacterial soap then pat dry place ABD pad and JO hose over top. This is to be done daily. do not submerge for 3 weeks. If not showering daily must clean incision and change dressing daily. Do not allow animals near incision keep clean. Follow anticoagulation recommendations. Call Dr. Garces with any concerns. Allergies/Adverse Reactions: Allergies No Known Allergies Allergy (Verified 09/12/19 06:46) Medications to take at Discharge aspirin 325 mg tablet,delayed release 325 mg PO DAILY tab 05/30/19 fluticasone propionate 50 mcg/actuation nasal spray,suspension 2 spray INTRANASAL DAILY 05/30/19 multivitamin tablet 1 tab PO DAILY 05/30/19 tramadol 50 mg tablet 50 mg PO QHS 06/27/19 sumatriptan 25 mg tablet See Rx Instructions .ROUTE .COMPLEX #20 tab 07/06/19 compression stocking,knee high,regular,large circumfer. See Rx Instructions .ROUTE .MEDSUPPLY #2 ea 08/01/19 tramadol 50 mg tablet 50 mg PO Q8H PRN #42 tab 08/16/19 Amlodipine Besylate 5 mg PO DAILY 09/05/19 Citalopram Hydrobromide [Citalopram HBr] 40 mg PO DAILY 09/05/19 Dicyclomine HCl 20 mg PO BID 09/05/19 Simvastatin 10 mg PO QHS 09/05/19 Shower chair #1 ea 09/06/19 Acetaminophen [Tylenol] 1,000 mg PO Q6H PRN #100 tab 09/13/19 Apixaban [Eliquis] 2.5 mg PO BID #28 tab 09/13/19 Oxycodone [Oxyir] 5 - 10 mg PO Q4H PRN PRN #60 tablet 09/13/19 The following prescriptions were given: Apixaban [Eliquis] 2.5 mg PO BID #28 tab Transmission Status: Pending to [facility] Oxycodone [Oxyir] 5 - 10 mg PO Q4H PRN PRN #60 tablet PRN Reason: Pain Score 4-10/10 Transmission Status: Sent to [facility] Acetaminophen [Tylenol] 1,000 mg PO Q6H PRN #100 tab Transmission Status: Pending to [facility] Primary Care Physician: Berto Najera MD [Primary Care Provider] - Test Results: Test results from this visit will be discussed in further detail at your follow- up appointment, if applicable. Please Follow Up With: Mejia Garces DO - 2 weeks
--- NOTE | 2019-09-13 12:30 | DS.PCM_ITS ---
Discharge Date and Diagnosis Date of Admission: 09/12/19 Date of Discharge: 09/13/19 - Secondary Discharge Diagnosis Chronic Problems (Last Reviewed 08/24/19 @ 08:53 by Ej Mariee) Hypersomnolence (Chronic) CKD (chronic kidney disease), stage III (Chronic) Headache (Chronic) Colitis (Chronic) Limb weakness (Chronic) Difficulty balancing (Chronic) Knee pain (Chronic) Rt Knee Severe headache (Chronic) History of non-Hodgkin's lymphoma (Chronic) Right knee pain (Chronic) Enteritis (Chronic) Rhinitis (Chronic) Hyperlipidemia (Chronic) Depressive disorder (Chronic) Seborrheic dermatitis (Chronic) Hypertension (Chronic) Hospital Course and Treatment Summary of Care Provided: The patient is a 59 year old F who has long history of degenerative joint disease to the knee who has failed conservative treatment and wished to undergo elective total knee arthroplasty. Patient underwent the aformentioned procedure on the admission date without any intraoperative complications. Patient did receive pre-and postoperative antibiotics which were discontinued within 23 hours postoperatively. Patient did receive general anesthesia as well as an adductor canal block postoperatively. pain was controlled with IV and transition to p.o. pain medication Patient will be discharged home with oxycodone and will continue Tylenol as well. Patient had minimal intraoperative blood loss and 2gm tranexamic acid was administered there was no need for postoperative blood transfusion Patients vital signs remained stable. Patient was started on both mechanical and chemical DVT per prophylaxis postoperatively in the form of SCDs JO hose and Eliquis 2.5 mg twice daily for which she will continue for 2 additional weeks post hospital discharge. Kirt removed post op day number one and thigh high jo hose placed over top of the meplix silver dressing. This should be removed 72 hrs post operatively and showering begun daily at that time with warm water and antibacterial soap. not to submerge for 3 weeks. To change dressing daily after first dressing change. Patient will follow-up in the office in 2 weeks. No intrahospital complications. ] Subjective: Alert and oriented no acute distress no complaints denies fevers chills nausea vomiting's shortness of breath or chest pain - Physical Exam Vitals/I&O's: Vital Signs Temp Pulse Resp BP Pulse Ox 98.2 F 76 16 153/72 H 97 09/13/19 10:45 09/13/19 10:45 09/13/19 10:45 09/13/19 10:45 09/13/19 10:45 Oxygen Flow Rate (L/min) 6 Oxygen Delivery Method Room Air Weight: 207 lb 0.225 oz Body Mass Index (BMI) 39.1 Intake and Output for Last 24 Hours 09/11/19 09/12/19 09/13/19 23:59 23:59 23:59 Intake Total 3180 / 3180 1050 / 1050 Output Total 800 / 800 Balance 3180 / 2980 250 / 250 General: Alert, Oriented x3, Cooperative, No apparent distress Extremities: - - Dressing clean dry and intact neurovascular intact compartments soft and compressible Laboratory Results 09/13/19 03:40: WBC 15.6 H, RBC 3.84 L, Hgb 11.2 L, Hct 33.5 L, MCV 87.2, MCH 29.2, MCHC 33.4, RDW Std Deviation 41.7, RDW Coeff of Nita 13.2, Plt Count 271, MPV 10.8 09/13/19 03:40: Sodium 141, Potassium 4.5, Chloride 108 H, Carbon Dioxide 26.0, Anion Gap 7, BUN 16, Creatinine 1.09 H, Estim Creat Clear Calc 40.90, Est GFR (MDRD) Af Amer 66, Est GFR (MDRD) Non-Af 54 L, BUN/Creatinine Ratio 14.7, Glucose 158 H, Calcium 8.3 L Current Medications Acetaminophen (Tylenol) 1,000 mg PO Q8 [facility] Last Admin: 09/13/19 06:05 Dose: 1,000 mg Documented by: Amlodipine Besylate (Norvasc) 5 mg PO DAILY [facility] Last Admin: 09/13/19 10:48 Dose: 5 mg Documented by: Apixaban (Eliquis) 2.5 mg PO BID [facility] Last Admin: 09/13/19 06:05 Dose: 2.5 mg Documented by: Atorvastatin Calcium (Lipitor) 5 mg PO QHS [facility] Last Admin: 09/12/19 21:08 Dose: 5 mg Documented by: Dicyclomine HCl (Bentyl) 20 mg PO BID [facility] Last Admin: 09/13/19 10:47 Dose: 20 mg Documented by: Hydromorphone HCl (Dilaudid Inj) 0.5 mg IV Q2H PRN PRN PRN Reason: Pain Score 6-10/10 Insulin Human Lispro (Humalog Kwikpen (Bkc)) 1 - 6 unit SC Q4H PRN PRN; Protocol PRN Reason: BG>/= 180, SEE PROTOCOL Ondansetron HCl (Zofran) 4 mg IV Q6H PRN PRN PRN Reason: NAUSEA Oxycodone HCl (Oxyir) 5 - 10 mg PO Q4H PRN PRN PRN Reason: Pain Score 4-10/10 Last Admin: 09/13/19 08:40 Dose: 10 mg Documented by: Senna/Docusate Sodium (Senokot-S, Marcelle-Colace) 2 tablet PO BID [facility] Last Admin: 09/13/19 10:48 Dose: 2 tablet Documented by: Sodium Chloride () 10 - 40 ml IV UD PRN PRN Reason: SALINE FLUSH Last Admin: 09/13/19 06:05 Dose: 30 ml Documented by: Discharge Diet: No Restrictions Discharge Activity: Return to Normal Activity Weight Bearing Status: Weight bearing as tolerated Call your doctor if you observe: Shortness of breath, Chest pain Home Medications: Medications to take at Discharge aspirin 325 mg tablet,delayed release 325 mg PO DAILY tab 05/30/19 fluticasone propionate 50 mcg/actuation nasal spray,suspension 2 spray INTRANASAL DAILY 05/30/19 multivitamin tablet 1 tab PO DAILY 05/30/19 tramadol 50 mg tablet 50 mg PO QHS 06/27/19 sumatriptan 25 mg tablet See Rx Instructions .ROUTE .COMPLEX #20 tab 07/06/19 compression stocking,knee high,regular,large circumfer. See Rx Instructions .ROUTE .MEDSUPPLY #2 ea 08/01/19 tramadol 50 mg tablet 50 mg PO Q8H PRN #42 tab 08/16/19 Amlodipine Besylate 5 mg PO DAILY 09/05/19 Citalopram Hydrobromide [Citalopram HBr] 40 mg PO DAILY 09/05/19 Dicyclomine HCl 20 mg PO BID 09/05/19 Simvastatin 10 mg PO QHS 09/05/19 Shower chair #1 ea 09/06/19 Acetaminophen [Tylenol] 1,000 mg PO Q6H PRN #100 tab 09/13/19 Apixaban [Eliquis] 2.5 mg PO BID #28 tab 09/13/19 Oxycodone [Oxyir] 5 - 10 mg PO Q4H PRN PRN #60 tablet 09/13/19 Following Prescrptions Were Given to Patient: Apixaban [Eliquis] 2.5 mg PO BID #28 tab Transmission Status: Pending to [address] Oxycodone [Oxyir] 5 - 10 mg PO Q4H PRN PRN #60 tablet PRN Reason: Pain Score 4-10/10 Transmission Status: Sent to [address] Acetaminophen [Tylenol] 1,000 mg PO Q6H PRN #100 tab Transmission Status: Pending to [address] Primary Care Physician: Berto Najera MD [Primary Care Provider] - Please Follow Up With: Mejia Garces, - 2 weeks Additional Instructions: Ice and elevate next week while not ambulating. Encourage ambulation weightbearing as tolerated. Encourage FULL knee extension and flexion 1 time EVERY time you get up and down and MULTIPLE times per day. Begin showering postop day #3. Remove the dressing prior to shower gently wash with warm water and antibacterial soap then pat dry place ABD pad and JO hose over top. This is to be done daily. do not submerge for 3 weeks. If not showering daily must clean incision and change dressing daily. Do not allow animals near incision keep clean. Follow anticoagulation recommendations. Call Dr. Garces with any concerns. Medical Necessity - Tobacco Use Smoking Status: Never smoker Meaningful Use Info Meaningful Use Diagnoses (Choose all that apply): None applicable
--- NOTE | 2019-09-13 13:16 | CASEMGMT ---
MICHAEL MCGOWAN Note: per DARLENE- pt had script for wheeled walker filled in 2016 and insurance will not pay for another script. Spoke with pt who states her is using walker. MICHAEL MCGOWAN called to daughter on pt's phone, placed on speaker and let daughter know that pt will need her walker, and they can purchase another walker if needed for . Also reviewed other DME (raised toilet seat, toilet side rails and grab bars) needed and would not be covered under insurance but could be bought at [facility] or [employer]. Daughter states she will assist with this. - Call received from - they can accept patient. Call to update that discharge will be today. Pt to be discharged today with Home Health. Sara JUDD RN ACM
[2019-09-13 15:06] VITALS: BP 150/63; PULSE 78; RESP 18; TEMP 37.2; O2SAT 100
== END 2019-09-13 15:55 | disposition home health service (06) ==
LOC: SDC 10:35 → MS3 10:36
PROVIDERS: Admitting Provider Orthopaedic Surgery; Family Provider Internal Medicine; PCP Internal Medicine; Referring Provider Orthopaedic Surgery; Visit Provider Orthopaedic Surgery
PROC: (CPT 27447; principal; 2019-09-12 07:50)
DX: M17.11 Unilateral primary osteoarthritis, right knee (principal); E78.5 Hyperlipidemia, unspecified; F32.9 Major depressive disorder, single episode, unspecified; I69.351 Hemiplegia and hemiparesis following cerebral infarction affecting right dominant side; I12.9 Hypertensive chronic kidney disease with stage 1 through stage 4 chronic kidney disease, or unspecified chronic kidney disease; N18.3 Chronic kidney disease, stage 3 (moderate); Z79.899 Other long term (current) drug therapy; Z79.82 Long term (current) use of aspirin; Z79.51 Long term (current) use of inhaled steroids; Z85.72 Personal history of non-Hodgkin lymphomas
CPT/HCPCS: 01400; 27447; 64447; 73560; 80048; 82962; 85027; 87077; 87081; 96361; 96365; 96366; 96375; 97110; 97116; 97162; 97166; 97530; 99218; 99251; C1776; J7120; A4216; G0378; G0379; G0463; J0702; J3490

== ENCOUNTER 2019-10-26 06:58 | Day surgery (SDC) | payer OTHER, SELFPAY ==
[2019-10-23 09:44] VITALS: BMI 39.1
[2019-10-26] VITALS (7 sets, daily range): BP systolic 100–128; BP diastolic 59–84; PULSE 63–77; RESP 16–18; TEMP 36.3–37.2; O2SAT 92–100; BMI 36.9
[2019-10-26] MEDS: Lactated Ringers 1,000 ML 100 ML IV (07:57)
[2019-10-26] MEDS: Cefazolin 2 GM in 0.9% Normal Saline 100 ML IV (08:16)
[2019-10-26] MEDS: MethylPREDNISolone Acetate 80 MG/ML Vial (08:26)
[2019-10-26] MEDS: Bupiv/Epi 0.25% 30 ML Vial (08:26)
--- NOTE | 2019-10-26 08:31 | DCINST_ITS ---
Discharge Diet: No Restrictions Discharge Activity: Return to Normal Activity Additional Instructions: Weightbearing as tolerated. Encourage full knee extension and flexion immediately. Resume physical therapy immediately. Pain medication as prescribed. May shower. Call with any concerns. Allergies/Adverse Reactions: Allergies No Known Allergies Allergy (Verified 10/26/19 07:29) Medications to take at Discharge aspirin 325 mg tablet,delayed release 325 mg PO DAILY tab 05/30/19 multivitamin 1 tab PO DAILY 05/30/19 Amlodipine Besylate 5 mg PO DAILY 09/05/19 Citalopram Hydrobromide [Citalopram HBr] 40 mg PO DAILY 09/05/19 Dicyclomine HCl 20 mg PO BID 09/05/19 Simvastatin 10 mg PO QHS 09/05/19 Acetaminophen [Tylenol] 1,000 mg PO Q6H PRN #100 tab 09/13/19 fluticasone propionate 50 mcg/actuation nasal spray,suspension 2 spray INTRANAS AL DAILY #47.4 g 09/13/19 sumatriptan succinate 25 mg tablet See Rx Instructions .ROUTE .COMPLEX #20 tab 10/06/19 oxycodone 5 mg capsule 5 mg PO Q4H PRN #60 cap 10/23/19 Primary Care Physician: Berto Najera MD [Primary Care Provider] - Test Results: Test results from this visit will be discussed in further detail at your follow- up appointment, if applicable. Please Follow Up With: Mejia Garces DO - 2 weeks
--- NOTE | 2019-10-26 08:33 | OP.PCM_ITS ---
Report of Operation Date of Procedure: 10/26/19 Description of Surgical Findings:: Preoperative diagnosis: Arthrofibrosis right knee Postoperative diagnosis: Same Procedure: Manipulation under anesthesia [with intra-articular steroid injection] Anesthesia: General EBL: None Complications: None Condition: Able to PACU Indication for procedure: This is a 59-year-old female who underwent total knee arthroplasty approximately 6 weeks ago who is failed to gain her range of motion wish to undergo an elective manipulation under anesthesia to increase range of motion. risk benefits and alternatives were reviewed including risk of bleeding infection nerve, artery, bone, tissue damage, blood clot need for further s urgery and continued pain. Procedure: Patient was met in the preoperative holding area once again the operative extremity was identified by both patient and physician and was marked. Patient was brought back to the operating room anesthesia was started. A timeout was called into the proper patient procedure and extremity were being contemplated. The operative range of motion was lacking 5 extension and achieving 70 degrees flexion. After patient was adequately anesthetized extension manipulation was performed followed by patellar mobilization followed by gradual flexion scar tissue was palpated being released with no concerning signs for tendon rupture or fracture. Postoperative range of motion was much improved with [near full ]extension and 120 degrees of flexion.
--- NOTE | 2019-10-26 08:36 | HP.PCM_ITS ---
History and Physical Date of Admission: 10/26/19 Intake Vital Signs 10/23/19 BMI 39.1 Intake Visit Reasons: RIGHT KNEE Is patient in pain?: Yes Allergies No Known Allergies Allergy (Verified 10/23/19 09:30) COUNTS INCLUDE 234 BEDS AT THE [facility] Social History (Updated 10/23/19 @ 11:44 by Mejia Garces DO) Smoking Status: Never smoker alcohol intake: never substance use type: does not use what type of physical activity do you participate in: none HPI RIGHT KNEE: Details: Parts of this documentation were recorded by a scribe, this documentation accurately reflects the service provided and the decisions made by me, Mejia Garces DO 10/23/19 0752. BRYAN WEISS is a 59 year old F here today for s/p right TKA dos 09/12/19. She states that she has achiness over her medial knee Patient states that she is unable to sleep at night. She is not taking any pain medication as her medication spilled on the bathroom floor. She is currently in physical therapy. She has limited knee flexion. Patient is ambulating with an antalgic gait. Denies numbness, tingling or other associated symptoms.Her incision is fully healed. ROS Musc Reports joint pain, Reports limited joint movement, Reports muscle weakness, Reports stiffness Ortho Exam Right Knee Skin/Wound: Yes healed, No erythema, No ecchymosis, Yes swelling (mild) Knee ROM: Yes ROM-Extension -20 to 0 (-16), Yes ROM-Flexion 0-140 (74) Stability: NML: Valgus 0, NML: Valgus 30, NML: Varus 0, NML: Varus 30 Assessment & Plan Problems 1. Orthopedic aftercare Z47.89 2. Stiffness of right knee M25.661 Plan Spoke with the patient about knee stiffness and recommended a manipulation under anesthesia. Escribed the patient more medication. She will do formal physical therapy the day following the manipulation. She already has an appointment scheduled. Risks, benefits and alternatives of surgery reviewed including risk of bleeding, infection, nerve, artery and/or tissue damage continued pain or symptoms and expected post-operative course. Follow up in 1 month or sooner if pain, swelling, numbness or associated symptoms, or concerns develop. All questions answered. Patient in agreement of plan. Medications New: oxycodone 1-2 tabs every 4 hrs as needed for pain 5 mg PO Q4H PRN 60 caps 0RF pain G89.18, T84.82XA Coding Level of Care Code Global Post Op Diagnoses Orthopedic aftercare Z47.89 Stiffness of right knee M25.661 I have re-examined the patient. There are no clinical changes since date of exam
--- NOTE | 2019-10-26 09:17 | PCM.PN.ORT ---
Subjective: increased pain today now that block worn off however now she is able to perform active knee extension. - Physical Exam Vitals/I&O's: Vital Signs Temp Pulse Resp BP Pulse Ox 99.0 F 66 16 103/59 L 93 10/26/19 08:55 10/26/19 08:55 10/26/19 08:55 10/26/19 08:55 10/26/19 08:55 Oxygen Delivery Method Room Air Weight: 198 lb 13.711 oz Body Mass Index (BMI) 36.9 General: Alert, Cooperative Extremities: - - Dressing clean dry and intact neurovascular intact today Current Medications Lactated Ringer's () 1,000 mls @ 100 mls/hr IV .Q10H [facility] Last Admin: 10/26/19 07:57 Dose: 100 mls/hr Documented by: Medical Necessity - Tobacco Use Smoking Status: Never smoker Assessment/Plan All Active Problems (Last Reviewed 08/24/19 @ 08:53 by Ej Mariee) Bacterial skin infection of leg (Acute) 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
== END 2019-10-26 10:18 | disposition home or self-care (01) ==
LOC: SDC 06:59 → AC 07:00
PROVIDERS: Family Provider Internal Medicine; PCP Internal Medicine; Referring Provider Orthopaedic Surgery; Visit Provider Orthopaedic Surgery
PROC: (CPT 27570; principal; 2019-10-26 08:40)
DX: M24.661 Ankylosis, right knee (principal); I69.328 Other speech and language deficits following cerebral infarction; E78.00 Pure hypercholesterolemia, unspecified; Z96.651 Presence of right artificial knee joint; Z79.82 Long term (current) use of aspirin
CPT/HCPCS: 01380; 27570; J7120; A4216

== ENCOUNTER → 2019-10-31 10:33 | Outpatient (CLI) | payer OTHER, SELFPAY ==
[2019-10-31 10:07] VITALS: BMI 36.9
[2019-10-31 12:14] LABS: Absolute Lymphocyte Count 2.08 X10^3/uL (0.83-4.51); Absolute Neutrophil Count 7.1 X10^3/uL (2.0-7.7); Basophil# 0.06 X10^3/uL; Basophil% 0.6 % (0-1); Eosinophil# 0.19 X10^3/uL; Eosinophils% 1.9 % (0-5); Hematocrit 40.9 % (37-47); Lymphocyte # 2.08 X10^3/ul (4.0); Lymphocyte % 20.7 % (19-41); Mean Corp Hgb Conc 31.8 g/dL (32-36); Mean Corpuscular Volume 88.1 fL (81-99); Mean Platelet Vol. 10.6 fl (6.2-12.0); Monocyte# 0.55 X10^3/uL; Monocyte% 5.5 % (0-10); NRBC Flagged by Analyzer 0 % (0-5); Neutrophil # 7.13 X10^3/uL (2.7-7.7); Neutrophil % 70.7 % (47-70); Platelet Count 364 K/mm3 (150-450); RBC Distribution Width CV 13.4 % (11.6-14.6); RBC Distribution Width SD 43.1 fl (35.1-43.9); Red Blood Count 4.64 M/mm3 (4.2-5.4); White Blood Count 10.1 K/mm3 (4.4-11.0)
[2019-10-31 12:25] LABS: Anion Gap 3 (5-15); BUN 17 mg/dL (7-18); BUN/Creat Ratio 15.5 RATIO (10-20); Calcium,Total 9.2 mg/dL (8.5-10.1); Chloride 105 mmol/L (98-107); EST Glomerular Filtration Rate 54 mL/min (>60); Est Glom Filt Rate - Afr Amer 65 mL/min (>60); Glucose 109 mg/dL (74-106); Sodium Level 140 mmol/L (136-145)
[2019-10-31 12:47] LABS: Hemoglobin A1c 5.8 % (4.2-6.3)
== END ==
PROVIDERS: PCP Internal Medicine; Visit Provider Internal Medicine
DX: I10 Essential (primary) hypertension (principal); R73.09 Other abnormal glucose
CPT/HCPCS: 36415; 80048; 83036; 85025

== ENCOUNTER → 2019-11-08 06:56 | Outpatient (CLI) | payer OTHER, SELFPAY ==
[2019-10-31 10:07] VITALS: BMI 36.9
[2019-11-06 08:10] VITALS: BMI 36.9
--- NOTE | 2019-11-08 06:57 | BI_ITS ---
MAMMOGRAPHY - BILATERAL SCREENING REASON FOR EXAM: Female, 59 years old. Routine annual screening examination. PERTINENT HISTORY: Non-contributory. Chronic inversion of the right nipple. The patient has a history of lymphoma. TECHNIQUE: Digital bilateral breast reid (3D mammographic acquisition) in the CC and MLO projections. 2-D mediolateral oblique (MLO) and craniocaudad (CC) views of both breasts were obtained. CAD: Full Field Digital Mammography with Computer Added Detection was performed. COMPARISON: Comparison is made with prior examination dated July 23, 2014 and July 13, 2013. FINDINGS: Breast Composition: The breasts are heterogeneously dense, which may obscure small masses. There are no dominant masses or suspicious calcifications. No other significant abnormalities are identified. There has been no significant change since the prior study. BI/SCREEN MAMM (CAD) W/REID BILAT IMPRESSION: Stable bilateral screening mammogram. Yearly follow-up mammogram recommended. (A) ASSESSMENT CATEGORY: BIRADS Category 1: Negative. A letter regarding these results will be sent to the patient by the facility within 30 days. Approximately 10% of breast cancers are not detected by mammography. A normal mammogram should not delay biopsy of a clinically suspicious abnormality. [id number] Electronically Signed: Etienne Chavez, at 8:29 EST , Service support ,
== END ==
LOC: OPBI 06:57
PROVIDERS: PCP Internal Medicine; Referring Provider Internal Medicine; Visit Provider Internal Medicine
DX: Z00.00 Encounter for general adult medical examination without abnormal findings (principal); Z12.31 Encounter for screening mammogram for malignant neoplasm of breast
CPT/HCPCS: 77063; 77067

== ENCOUNTER 2019-11-21 06:39 | Day surgery (SDC) | payer OTHER, SELFPAY ==
[2019-11-06 08:10] VITALS: BMI 36.9
--- NOTE | 2019-11-06 10:01 | HP_ITS ---
Intake Vital Signs 11/06/19 Height 5 ft 1.5 in 11/06/19 Weight: 198 lb 11/06/19 BMI 36.8 11/06/19 BP 168/83 H 11/06/19 Blood Pressure Location Rt brachial 11/06/19 Position Sitting 11/06/19 Respiration 18 Intake Visit Reasons: cscope consult, poor historian Chief Complaint: FU Chronic Conditions Printing Machinist Required: No Is patient in pain?: No Allergies No Known Allergies Allergy (Verified 11/06/19 08:10) Medications aspirin 325 mg tablet,delayed release 325 mg PO DAILY tab 05/30/19 [History Confirmed 10/31/19] multivitamin 1 tab PO DAILY 05/30/19 [History Confirmed 10/31/19] Amlodipine Besylate 5 mg PO DAILY 09/05/19 [History Confirmed 10/31/19] Citalopram Hydrobromide [Citalopram HBr] 40 mg PO DAILY 09/05/19 [History Confirmed 10/31/19] Dicyclomine HCl 20 mg PO BID 09/05/19 [History Confirmed 10/31/19] Simvastatin 10 mg PO QHS 09/05/19 [History Confirmed 10/31/19] Acetaminophen [Tylenol] 1,000 mg PO Q6H PRN #100 tab 09/13/19 [Rx Confirmed 10/31/19] fluticasone propionate 50 mcg/actuation nasal spray,suspension 2 spray INTRANASAL DAILY #47.4 g 09/13/19 [Rx Confirmed 10/31/19] sumatriptan succinate 25 mg tablet See Rx Instructions .ROUTE .COMPLEX #20 tab 10/06/19 [Rx Confirmed 10/31/19] oxycodone 5 mg capsule 5 mg PO Q4H PRN #60 cap 10/23/19 [Rx Confirmed 10/31/19] PFSH Medical History Colitis (Chronic) Non-Hodgkin lymphoma in remission (Inactive) Limb weakness (Chronic) Difficulty balancing (Chronic) Knee pain (Chronic) Severe headache (Chronic) History of stroke (Resolved) Stroke (Resolved) Enteritis (Chronic) Rhinitis (Chronic) Hyperlipidemia (Chronic) Depressive disorder (Chronic) Surgical History History of delivery (Acute) History of colonoscopy (Acute) History of total left knee replacement (Acute) History of (Inactive) History of tonsillectomy (Inactive) History of total left knee replacement (Inactive) History of total right knee replacement (Inactive ~09/2019) S/P left rotator cuff repair (Inactive) S/P right knee arthroscopy (Inactive) Family History Father Hypertension CVA (cerebral vascular accident) Mother Diabetes Hypertension CVA (cerebral vascular accident) Social History (Updated 11/06/19 @ 10:01 by Randolph Whiting MD) Smoking Status: Never smoker alcohol intake: never substance use type: does not use what type of physical activity do you participate in: none HPI HPI HPI: BRYAN WEISS, is a 59 F who presents to the office today for HPI HPI Surgical H&P: Yes HPI: BRYAN WEISS, is a 59 F who presents to the office today for colonoscopy. The patient reports She had her last colonoscopy 7 years ago. She is not seeing the advertising specialist. She is having diarrhea with no blood. She says she has a history of ulcerative colitis. ROS General General: Yes weight change and fatigue; no appetite, colon cancer, breast cancer or weakness HEENT HEENT: No difficulty swallowing, eye injury, eye surgery, swollen glands or hoarseness Endo Endocrine: No thyroid disease, diabetes mellitus, thyroid cancer, Hair loss, heat intolerance or cold intolerance Skin Skin: No rash or changing moles Breast Breast: No left breast lump, right breast lump, nipple discharge, breast pain, abnormal mammogram, abnormal US or breast enlargement Musc Musculoskeletal: Yes arthritis and rheumatoid arthritis; no back problems, gout or joint pain Cardio Cardiovascular: Yes high blood pressure; no murmur, pacemaker, heart disease, atrial fibrillation, heart attack, heart stent, palpitations, shortness of breat with exertion or chest pain Psych Psychiatric: Yes depression; no anxiety or hearing voices Resp Respiratory: No shortness of breath, No sleep apnea, No cough, No COPD, No asthma, No emphysema, No wheezing Gastro Gastrointestinal: No abdominal pain, No nausea or vomiting, Yes diarrhea, No constipation, No blood in stool, No acid reflux, No hemorrhoids, No ulcers, No gallbladder problem, No black,tarry stools Hector Hematologic: Yes blood thinners, No blood disorders, No bleeding, No anemia, No blood clots Neuro Neurologic: No system reviewed and no additional complaints, except as docu, No as per HPI, No abnormal walking, No abnormal hearing, No abnormal movements, No abnormal speech, No behavioral changes, No burning sensations, No confusion, No seizure-like activity, No unsteadiness, No dizziness, No localized weakness, No frequent falls, No headache(s), No lack of coordination, No loss of vision, No memory loss, Yes numbness, No other visual disturbances, No radiating pain, No restless legs, No sensory deficit, No fainting, Yes tingling, No tremor(s), No weakness, No other Exam Const General: cooperative Orientation: alert, oriented x3 Chest Breast Palpation: No nipple discharge Resp Effort & Inspection: normal respiratory effort Auscultation: clear to auscultation bilaterally Cardio Rate: regular rate Rhythm: regular rhythm Heart Sounds: no murmurs GI Inspection: non-distended Palpation: soft, nontender Assessment & Plan Problems 1. Colitis K52.9 2. Hx of colonic polyp Z86.010 Plan The patient reports that she has a history of ulcerative colitis. She does not see a advertising specialist. She says she is having diarrhea with no blood. She says she had a colonoscopy 7 years ago which did reveal polyps. I did offer her colonoscopy but I think she needs to be seen by advertising specialist for her diarrhea. If she does indeed have ulcerative colitis that gets proven by biopsy she may also need colectomy. I explained endoscopy in detail to the patient. I explained the risks including but not limited to stroke or heart attack with anesthesia, perforation of the GI tract, bleeding, infection. I explained that any of these could necessitate further emergency surgery. The patient understands and all questions were answered sufficiently. The patient wishes to proceed with procedure. Randolph Whiting MD Pager: [facility] [address] [place] [address], [address] [place] [address] Office: Orders Orders: Colonoscopy Today K51.90, Z86.010 Coding Level of Care Code Off vis,est,level 3 Diagnoses Colitis K52.9 Hx of colonic polyp Z86.010 11/06/19 1002 <Electronically signed by Randolph evans MD> Date _ Randolph Whiting MD I have re-examined the patient. There are no clinical changes since date of exam.
[2019-11-08 08:04] VITALS: BMI 36.9
--- NOTE | 2019-11-21 | COLBX_PTH ---
PATIENT: BRYAN RUSS LOC: EN U#:[id number] AGE/SX: 59/F ROOM: RE11/21/[address]: Dr. Randolph Whiting MD : 1960 BED: DIS: 11/21/2019 SPEC #: [id number] RECD: 11/21/19 12:55 STATUS: KELSEY REJennifer #: [id number] JENNIFER: 11/21/19 00:[address]: Randolph Whiting DEPT: SURGICAL PATHOLOGY RECD BY: Fabiola Jose ENTERED: 11/21/19 14:04 SP TYPE: COLON BX OTHR DR: Dr. Berto Najera MD Tissues: A - Ileum, NOS B - COLON BIOPSY C - Descending colon Procedures: Surgery Specimen Level IV HEADER OPERATION: Colonoscopy (MAC) PRE-OP DIAGNOSIS: Colitis, history colon polyp TISSUE SUBMITTED: A - Terminal ileum biopsy, B - Random colonic biopsy, C - Descending colon polyp biopsy MICROSCOPIC DIAGNOSIS A. Terminal ileum, biopsy: No pathologic change. B. Colon, random biopsy: Focal hyperplastic change. See comment. C. Descending colon polyp, biopsy: Fragments of tubular adenoma. AM:indira 11/22/19 COMMENT B. Eosinophils are mildly increased in the mucosa. The significance of this is unclear. Clinical correlation is suggested. MICROSCOPIC DESCRIPTION Slides are reviewed. GROSS DESCRIPTION A - Received in fixative is one container labeled with the patient's name and designated terminal ileum biopsy. The specimen consists of multiple irregular fragments of light bond soft tissue that in aggregate measure 1 x 0.3 x 0.1 cm. The specimen is totally submitted in one cassette. B - Received in fixative is one container labeled with the patient's name and designated random colon biopsy. The specimen consists of multiple irregular fragments of light bond soft tissue that in aggregate measure 2 x 1 x 0.1 cm. The specimen is totally submitted in one cassette. C - Received in fixative is one container labeled with the patient's name and designated descending colon polyp biopsy. The specimen consists of one irregular fragment of light bond soft tissue that measures 0.4 x 0.4 x 0.1 cm. The specimen is totally submitted in one cassette. / CHACHO:indira 11/21/19 TC:5 CPT: 96208 x3
[2019-11-21 07:06] VITALS: BP 160/98; PULSE 69; RESP 16; TEMP 36.7; O2SAT 97; BMI 37.4
[2019-11-21 08:11] VITALS: BP 125/86; BP 160/98; PULSE 65; RESP 16; TEMP 36.2; O2SAT 100
[2019-11-21 08:15] VITALS: BP 126/87; BP 160/98; PULSE 73; RESP 16; O2SAT 98
[2019-11-21 08:21] VITALS: BP 158/101; BP 160/98; PULSE 65; RESP 16; O2SAT 99
--- NOTE | 2019-11-21 08:22 | OP.COLON_ITS ---
Patient Name: Jaja Stevens Procedure Date: 11/21/2019 7:42 AM Date of : 1960 Age: 59 Procedure: Colonoscopy Indications: Chronic diarrhea Providers: Randolph Whiting MD Medicines: Monitored Anesthesia Care Patient Profile: This is a 59 year old female. Refer to note in patient chart for documentation of history and physical. Last Colonoscopy: several years ago. This patient has non-classified chronic colitis. Complications: No immediate complications. Estimated blood loss: Minimal. Procedure: Pre-Anesthesia Assessment: - Prior to the procedure, a History and Physical was performed, and patient medications and allergies were reviewed. The patient's tolerance of previous anesthesia was also reviewed. The risks and benefits of the procedure and the sedation options and risks were discussed with the patient. All questions were answered, and informed consent was obtained. Prior Anticoagulants: The patient has taken aspirin, last dose was 2 days prior to procedure. After reviewing the risks and benefits, the patient was deemed in satisfactory condition to undergo the procedure. After I obtained informed consent, the scope was passed under direct vision. Throughout the procedure, the patient's blood pressure, pulse, and oxygen saturations were monitored continuously. The pediatric colonoscope was introduced through the anus and advanced to the cecum, identified by appendiceal orifice and ileocecal valve. The colonoscopy was performed without difficulty. The patient tolerated the procedure well. The quality of the bowel preparation was good. Scope In: 7:54:48 AM Scope Withdrawal Time 0 hours 8 minutes 35 seconds Scope Out: 8:07:16 AM Total Procedure Duration Time 0 hours 12 minutes 28 seconds Findings: A small polyp was found in the descending colon. The polyp was removed with a cold biopsy forceps. Resection and retrieval were complete. Biopsies for histology were taken with a cold forceps from the entire colon for evaluation of microscopic colitis. The exam was otherwise without abnormality on direct and retroflexion views. Impression: - One small polyp in the descending colon, removed with a cold biopsy forceps. Resected and retrieved. Biopsied. - The examination was otherwise normal on direct and retroflexion views. Recommendation: - Discharge patient to home. - Resume previous diet. - Continue present medications. - Await pathology results. - Repeat colonoscopy date to be determined after pending pathology results are reviewed for surveillance based on pathology results. - Refer to a dress fitter at appointment to be scheduled. Procedure Code(s): --- Professional --- 58250, Colonoscopy, flexible; with biopsy, single or multiple Diagnosis Code(s): --- Professional --- D12.4, Benign neoplasm of descending colon K52.9, Noninfective gastroenteritis and colitis, unspecified CPT copyright 2017 [employer]. All rights reserved. The codes documented in this report are preliminary and upon remote inpatient coder review may be revised to meet current compliance requirements. Randolph Whiting MD 11/21/2019 8:22:09 AM This report has been signed electronically. Number of Addenda: 0 Note Initiated On: 11/21/2019 7:42 AM
--- NOTE | 2019-11-21 08:22 | OP.CCLET_ITS ---
11/21/2019 Berto Najera MD [address] [place] [address] [place] [address] Re : Colonoscopy procedure for Jaja Stevens Dear Dr. Najera This procedure was performed on Thursday, November 21, 2019. My impressions and recommendations are as follows: Impressions : - One small polyp in the descending colon, removed with a cold biopsy forceps. Resected and retrieved. Biopsied. - The examination was otherwise normal on direct and retroflexion views. Recommendations : - Discharge patient to home. - Resume previous diet. - Continue present medications. - Await pathology results. - Repeat colonoscopy date to be determined after pending pathology results are reviewed for surveillance based on pathology results. - Refer to a teacher vocational training at appointment to be scheduled. My findings are described in the full procedure note, which is enclosed. If I can be of further assistance, please feel free to contact me at Doctor phone number(s): , Work: . Sincerely, Randolph Whiting MD 11/21/2019 8:22:09 AM This report has been signed electronically.
[2019-11-21 08:25] VITALS: BP 142/101; BP 160/98; PULSE 63; RESP 16; O2SAT 99
[2019-11-21 08:31] VITALS: BP 158/86; BP 160/98; PULSE 62; RESP 16; TEMP 36.3; O2SAT 96
== END 2019-11-21 09:20 | disposition home or self-care (01) ==
LOC: EN 06:43 → AC 06:43
PROVIDERS: PCP Internal Medicine; Referring Provider Internal Medicine; Visit Provider Surgery
PROC: 0DJD8ZZ Inspection of Lower Intestinal Tract, Via Natural or Artificial Opening Endoscopic (ICD-10-PCS; CPT 45378; principal; 2019-11-21 07:55)
DX: D12.4 Benign neoplasm of descending colon (principal); K52.9 Noninfective gastroenteritis and colitis, unspecified; Z79.82 Long term (current) use of aspirin; I10 Essential (primary) hypertension; E78.00 Pure hypercholesterolemia, unspecified; G43.909 Migraine, unspecified, not intractable, without status migrainosus; F32.9 Major depressive disorder, single episode, unspecified; Z86.010 Personal history of colon polyps; Z86.73 Personal history of transient ischemic attack (TIA), and cerebral infarction without residual deficits
CPT/HCPCS: 45380; 88305; J7120; A4216

== ENCOUNTER → 2019-12-08 10:38 | Outpatient (CLI) | payer OTHER, SELFPAY ==
[2019-12-08 10:24] VITALS: BMI 37.4
--- NOTE | 2019-12-08 10:39 | RAD_ITS ---
EXAM DESCRIPTION: Right Knee CLINICAL HISTORY: 59 years Female, RECENT KNEE REPLACEMENT, STIFFNESS COMPARISON: Previous right knee x-rays obtained on 09/12/2019 FINDINGS: Studies of the right knee in 4 projections shows a total right knee prosthesis in place in excellent anatomic position and alignment. RAD/Knee 4 or More Views IMPRESSION: A total right knee prosthesis is noted in good position and alignment. Electronically Signed: Asif Myers, at 13:53 EST Tel , Service support ,
== END ==
LOC: HPRAD 10:39
PROVIDERS: PCP Internal Medicine; Referring Provider Orthopaedic Surgery; Visit Provider Orthopaedic Surgery
DX: M25.661 Stiffness of right knee, not elsewhere classified (principal)
CPT/HCPCS: 73564

== ENCOUNTER 2019-12-12 05:30 | Day surgery (SDC) | payer OTHER, SELFPAY ==
--- NOTE | 2019-11-06 10:01 | HP_ITS ---
Intake Vital Signs 11/06/19 Height 5 ft 1.5 in 11/06/19 Weight: 198 lb 11/06/19 BMI 36.8 11/06/19 BP 168/83 H 11/06/19 Blood Pressure Location Rt brachial 11/06/19 Position Sitting 11/06/19 Respiration 18 Intake Visit Reasons: cscope consult, poor historian Chief Complaint: FU Chronic Conditions Shorts Sifter Required: No Is patient in pain?: No Allergies No Known Allergies Allergy (Verified 11/06/19 08:10) Medications aspirin 325 mg tablet,delayed release 325 mg PO DAILY tab 05/30/19 [History Confirmed 10/31/19] multivitamin 1 tab PO DAILY 05/30/19 [History Confirmed 10/31/19] Amlodipine Besylate 5 mg PO DAILY 09/05/19 [History Confirmed 10/31/19] Citalopram Hydrobromide [Citalopram HBr] 40 mg PO DAILY 09/05/19 [History Confirmed 10/31/19] Dicyclomine HCl 20 mg PO BID 09/05/19 [History Confirmed 10/31/19] Simvastatin 10 mg PO QHS 09/05/19 [History Confirmed 10/31/19] Acetaminophen [Tylenol] 1,000 mg PO Q6H PRN #100 tab 09/13/19 [Rx Confirmed 10/31/19] fluticasone propionate 50 mcg/actuation nasal spray,suspension 2 spray INTRANASAL DAILY #47.4 g 09/13/19 [Rx Confirmed 10/31/19] sumatriptan succinate 25 mg tablet See Rx Instructions .ROUTE .COMPLEX #20 tab 10/06/19 [Rx Confirmed 10/31/19] oxycodone 5 mg capsule 5 mg PO Q4H PRN #60 cap 10/23/19 [Rx Confirmed 10/31/19] PFSH Medical History Colitis (Chronic) Non-Hodgkin lymphoma in remission (Inactive) Limb weakness (Chronic) Difficulty balancing (Chronic) Knee pain (Chronic) Severe headache (Chronic) History of stroke (Resolved) Stroke (Resolved) Enteritis (Chronic) Rhinitis (Chronic) Hyperlipidemia (Chronic) Depressive disorder (Chronic) Surgical History History of delivery (Acute) History of colonoscopy (Acute) History of total left knee replacement (Acute) History of (Inactive) History of tonsillectomy (Inactive) History of total left knee replacement (Inactive) History of total right knee replacement (Inactive ~09/2019) S/P left rotator cuff repair (Inactive) S/P right knee arthroscopy (Inactive) Family History Father Hypertension CVA (cerebral vascular accident) Mother Diabetes Hypertension CVA (cerebral vascular accident) Social History (Updated 11/06/19 @ 10:01 by Randolph Whiting MD) Smoking Status: Never smoker alcohol intake: never substance use type: does not use what type of physical activity do you participate in: none HPI HPI HPI: BRYAN WEISS, is a 59 F who presents to the office today for HPI HPI Surgical H&P: Yes HPI: BRYAN WEISS, is a 59 F who presents to the office today for colonoscopy. The patient reports She had her last colonoscopy 7 years ago. She is not seeing the medical supervisor. She is having diarrhea with no blood. She says she has a history of ulcerative colitis. ROS General General: Yes weight change and fatigue; no appetite, colon cancer, breast cancer or weakness HEENT HEENT: No difficulty swallowing, eye injury, eye surgery, swollen glands or hoarseness Endo Endocrine: No thyroid disease, diabetes mellitus, thyroid cancer, Hair loss, heat intolerance or cold intolerance Skin Skin: No rash or changing moles Breast Breast: No left breast lump, right breast lump, nipple discharge, breast pain, abnormal mammogram, abnormal US or breast enlargement Musc Musculoskeletal: Yes arthritis and rheumatoid arthritis; no back problems, gout or joint pain Cardio Cardiovascular: Yes high blood pressure; no murmur, pacemaker, heart disease, atrial fibrillation, heart attack, heart stent, palpitations, shortness of breat with exertion or chest pain Psych Psychiatric: Yes depression; no anxiety or hearing voices Resp Respiratory: No shortness of breath, No sleep apnea, No cough, No COPD, No asthma, No emphysema, No wheezing Gastro Gastrointestinal: No abdominal pain, No nausea or vomiting, Yes diarrhea, No constipation, No blood in stool, No acid reflux, No hemorrhoids, No ulcers, No gallbladder problem, No black,tarry stools Hector Hematologic: Yes blood thinners, No blood disorders, No bleeding, No anemia, No blood clots Neuro Neurologic: No system reviewed and no additional complaints, except as docu, No as per HPI, No abnormal walking, No abnormal hearing, No abnormal movements, No abnormal speech, No behavioral changes, No burning sensations, No confusion, No seizure-like activity, No unsteadiness, No dizziness, No localized weakness, No frequent falls, No headache(s), No lack of coordination, No loss of vision, No memory loss, Yes numbness, No other visual disturbances, No radiating pain, No restless legs, No sensory deficit, No fainting, Yes tingling, No tremor(s), No weakness, No other Exam Const General: cooperative Orientation: alert, oriented x3 Chest Breast Palpation: No nipple discharge Resp Effort & Inspection: normal respiratory effort Auscultation: clear to auscultation bilaterally Cardio Rate: regular rate Rhythm: regular rhythm Heart Sounds: no murmurs GI Inspection: non-distended Palpation: soft, nontender Assessment & Plan Problems 1. Colitis K52.9 2. Hx of colonic polyp Z86.010 Plan The patient reports that she has a history of ulcerative colitis. She does not see a medical supervisor. She says she is having diarrhea with no blood. She says she had a colonoscopy 7 years ago which did reveal polyps. I did offer her colonoscopy but I think she needs to be seen by medical supervisor for her diarrhea. If she does indeed have ulcerative colitis that gets proven by biopsy she may also need colectomy. I explained endoscopy in detail to the patient. I explained the risks including but not limited to stroke or heart attack with anesthesia, perforation of the GI tract, bleeding, infection. I explained that any of these could necessitate further emergency surgery. The patient understands and all questions were answered sufficiently. The patient wishes to proceed with procedure. Randolph Whiting MD Pager: [facility] [address] [place] [address], [address] [place] [address] Office: Orders Orders: Colonoscopy Today K51.90, Z86.010 Coding Level of Care Code Off vis,est,level 3 Diagnoses Colitis K52.9 Hx of colonic polyp Z86.010 11/06/19 1002 <Electronically signed by Randolph evans MD> Date _ Randolph Whiting MD
[2019-12-08 11:24] VITALS: BMI 37.4
--- NOTE | 2019-12-11 15:03 | HP.PCM_ITS ---
History and Physical Date of Admission: 12/12/19 Intake Intake Visit Reasons: RIGHT KNEE Is patient in pain?: Yes Pain scale (1-10): 4 Allergies No Known Allergies Allergy (Verified 11/20/19 08:30) Medications aspirin 325 mg tablet,delayed release 325 mg PO DAILY tab 05/30/19 [History Confirmed 12/08/19] multivitamin 1 tab PO DAILY 05/30/19 [History Confirmed 12/08/19] Citalopram Hydrobromide [Citalopram HBr] 40 mg PO DAILY 09/05/19 [History Conf irmed 12/08/19] Dicyclomine HCl 20 mg PO BID 09/05/19 [History Confirmed 12/08/19] Simvastatin 10 mg PO QHS 09/05/19 [History Confirmed 12/08/19] Acetaminophen [Tylenol] 1,000 mg PO Q6H PRN #100 tab 09/13/19 [Rx Confirmed 12/08/19] fluticasone propionate 50 mcg/actuation nasal spray,suspension 2 spray INTRANASAL DAILY #47.4 g 09/13/19 [Rx Confirmed 12/08/19] sumatriptan succinate 25 mg tablet See Rx Instructions .ROUTE .COMPLEX #20 tab 10/06/19 [Rx Confirmed 12/08/19] oxycodone 5 mg capsule 5 mg PO Q4H PRN #60 cap 10/23/19 [Rx Confirmed 12/08/19] amlodipine 5 mg tablet 5 mg PO DAILY #90 tab 11/07/19 [Rx Confirmed 12/08/19] oxycodone 5 mg capsule 5 mg PO Q6H PRN #56 cap 11/10/19 [Rx Confirmed 12/08/19] oxycodone 5 mg capsule 5 mg PO Q8H PRN #42 cap 11/24/19 [Rx Confirmed 12/08/19] amoxicillin 875 mg-potassium clavulanate 125 mg tablet 1 tab PO Q12H 10 Days #20 tab 12/08/19 [Rx Confirmed 12/08/19] PFSH Social History (Updated 12/08/19 @ 11:[address] Mejia Garces DO) Smoking Status: Never smoker alcohol intake: never substance use type: does not use what type of physical activity do you participate in: none HPI RIGHT KNEE: Details: Parts of this documentation were recorded by a scribe, this documenta tion accurately reflects the service provided and the decisions made by me, Mejia Garces, 12/08/19 0752. BRYAN WEISS is a 59 year old F here today for f/u right knee Manipulation under anesthesia on 10/26/2019. She has 5 more PT sessions left and continues to have stiffness, she is planning on continuing at [facility] for exercising after PT is complete. She states she has good and bad days but today she has less than 90 degrees of flexion. She says it feels like its bruised and has a hard time sleeping if her knees touch each other. Ortho Exam Right Knee Date of Surgery: 10/26/19 Skin/Wound: No erythema, No ecchymosis, No swelling Homans Sign: No Knee ROM: No ROM-Extension -20 to 0 (16), No ROM-Flexion 0-140 (67) Stability: NML: Valgus 0, NML: Varus 0 Supplemental Info 12/08/2019 x-ray right knee total knee arthroplasty without sign of hardware failure or loosening Assessment & Plan Problems 1. 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 She will need PT the day after her DENISE. Reviewed the pre-operative plans with the patient. Risks and benefits of the procedure were fully explained, including but not limited to infection, neurovascular injury, continued pain, arthritis, stiffness, need for further surgery, re-injury, DVT, PE, general risks of anesthesia, and loss of limb or life. The patient understands all the risks and does wish to proceed with written consent. Follow up post op or sooner if pain, swelling, numbness or associated symptoms, or concerns develop. All questions answered. Patient in agreement of plan. 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 There are no clinical changes since date of exam
[2019-12-12 05:55] VITALS: BP 154/83; PULSE 69; RESP 16; TEMP 37.1; O2SAT 98; BMI 36.6
[2019-12-12] MEDS: Lactated Ringers 1,000 ML 100 ML IV (06:21)
[2019-12-12] MEDS: Bupiv/Epi 0.25% 30 ML Vial (07:15)
--- NOTE | 2019-12-12 07:32 | PCM.OPRPT ---
Report of Operation Date of Procedure: 12/12/19 Description of Surgical Findings:: Preoperative diagnosis: Arthrofibrosis right knee Postoperative diagnosis: Same Procedure: Manipulation under anesthesia [with intra-articular bupivacaine injection] Anesthesia: General EBL: None Complications: None Condition: Able to PACU Indication for procedure: This is a 59-year-old female who underwent total knee arthroplasty who had a manipulation under anesthesia 6 weeks postop of her right total knee with parents of contracture since then ago who is failed to gain her range of motion wish to undergo an elective manipulation under anesthesia to increase range of motion. risk benefits and alternatives were reviewed including risk of bleeding infection nerve, artery, bone, tissue damage, blood clot need for further surgery and continued pain. Procedure: Patient was met in the preoperative holding area once again the operative extremity was identified by both patient and physician and was marked. Patient was brought back to the operating room anesthesia was started. A timeout was called into the proper patient procedure and extremity were being contemplated. The operative range of motion was lacking 5 extension and achieving 70 degrees flexion. After patient was adequately anesthetized extension manipulation was performed followed by patellar mobilization followed by gradual flexion scar tissue was palpated being released with no concerning signs for tendon rupture or fracture. Postoperative range of motion was much improved with [near full ]extension and [115] degrees of flexion. Following the manipulation using sterile technique from the superior lateral position an intra-articular injection with 8 cc 0.25%marcaine with epi was injected. bandaid applied
--- NOTE | 2019-12-12 07:34 | PCM.DC.ORTHO ---
Discharge Diet: No Restrictions Weight Bearing Status: Weight bearing as tolerated Call your doctor if you observe: Fever of 101 or Higher, Shortness of breath, Chest pain Additional Instructions: Weightbearing as tolerated. Encourage full knee extension and flexion immediately. Resume physical therapy immediately. Pain medication as prescribed. May shower. Call with any concerns. Allergies/Adverse Reactions: Allergies No Known Allergies Allergy (Verified 12/11/19 09:29) Medications to take at Discharge aspirin 325 mg tablet,delayed release 325 mg PO DAILY tab 05/30/19 multivitamin 1 tab PO DAILY 05/30/19 Citalopram Hydrobromide [Citalopram HBr] 40 mg PO DAILY 09/05/19 Simvastatin 10 mg PO QHS 09/05/19 fluticasone propionate 50 mcg/actuation nasal spray,suspension 2 spray INTRANASAL DAILY #47.4 g 09/13/19 sumatriptan succinate 25 mg tablet See Rx Instructions .ROUTE .COMPLEX #20 tab 10/06/19 amlodipine 5 mg tablet 5 mg PO DAILY #90 tab 11/07/19 oxycodone 5 mg capsule 5 mg PO Q8H PRN #42 cap 11/24/19 amoxicillin 875 mg-potassium clavulanate 125 mg tablet 1 tab PO Q12H 10 Days #20 tab 12/08/19 Acetaminophen [Tylenol] 1,000 mg PO Q6H PRN PRN 12/11/19 Oxycodone [Oxyir] 5 mg PO Q4H PRN PRN #60 tablet 12/12/19 The following prescriptions were given: Oxycodone [Oxyir] 5 mg PO Q4H PRN PRN #60 tablet PRN Reason: Pain Score 1-3/10 Transmission Status: Pending to [facility] Primary Care Physician: Berto Najera MD [Primary Care Provider] - Test Results: Test results from this visit will be discussed in further detail at your follow-up appointment, if applicable. Please Follow Up With: Mejia Garces DO - 4 weeks
[2019-12-12 07:38] VITALS: BP 144/84; BP 154/83; PULSE 72; RESP 16; TEMP 36.3; O2SAT 95
[2019-12-12 07:41] VITALS: BP 137/87; BP 154/83; PULSE 76; RESP 16; O2SAT 97
[2019-12-12 07:46] VITALS: BP 137/91; BP 154/83; PULSE 74; RESP 16; O2SAT 97
[2019-12-12 07:51] VITALS: BP 138/89; BP 154/83; PULSE 58; RESP 16; TEMP 36.1; O2SAT 100
[2019-12-12 08:20] VITALS: BP 154/83
[2019-12-12] MEDS: oxyCODONE 5 MG Tablet PO (08:30)
== END 2019-12-12 08:43 | disposition home or self-care (01) ==
LOC: SDC 05:30 → AC 05:31
PROVIDERS: PCP Internal Medicine; Referring Provider Orthopaedic Surgery; Visit Provider Orthopaedic Surgery
PROC: (CPT 27570; principal; 2019-12-12 07:10)
DX: M24.661 Ankylosis, right knee (principal); I10 Essential (primary) hypertension; E78.00 Pure hypercholesterolemia, unspecified; G43.909 Migraine, unspecified, not intractable, without status migrainosus; F32.9 Major depressive disorder, single episode, unspecified; Z79.82 Long term (current) use of aspirin; Z86.73 Personal history of transient ischemic attack (TIA), and cerebral infarction without residual deficits
CPT/HCPCS: 01380; 27570; J7120; A4216

== ENCOUNTER 2019-12-20 15:00 | Outpatient (RCR) | payer OTHER, SELFPAY ==
[2019-09-25 07:49] VITALS: BMI 39.1
--- NOTE | 2019-09-27 12:23 | HP.PTEVAL ---
Patient's Visit Information BRYAN WEISS is a 59 year old F referred to Physical Therapy by Mejia Garces DO with a diagnosis of R TKA s/p 09-12-19. Date of Evaluation: 09/27/19 Physical Therapist: PANCHO Varghese - Visit Plan Frequency: 2-3x /Week Duration: 6 Weeks Plan: 2-3X/ week for 4-6 weeks for R knee AROM, PROM, hip and knee strengthening on the R, gait training, functional activities with HEP and ice as needed. - Subjective Findings: Her surgery was 09-12-19. She is walking with a front wheeled walker and at home short distances with a cane. She is babying her R leg due to her bad hip OA and bad ankles. She had home PT/ OT a couple of times. She went to the Dr on Wednesday and he said that she could do out patient. SHe is doing HEP: hip abd, heel slides, SLR, sit to stands at home. She has basement steps and out side steps and garage steps (3). The basement steps are the only one with a railing. She goes down the garage steps using the door frame. SHe is cooking and making the bed etc. She is not driving. SHe is still having trouble bending it and feels it is a little stiff. SHe takes 2 oxy before comes to PT per the Dr. - Pain R knee pain Pain Intensity (Out of 10): 2 - Objective Gait: walks with a rolling walker with slow delaney and decrease stance time on the R and decreased stride length. R knee AROM: -15 degrees and 71 degrees R knee flexion. L knee AROM: (TKR in 2016) -1 degree to 77 degree L knee flexion. R knee girth measurements: 43, 44.5, 48.5. L knee girth measurements: 37, 40, 43. Nu-step X 10 min L1 to increase ROM!!! while going over HEP pictures - Goals Goal 1:: I HEP Goal Time Frame: 4-6 Weeks Goal 2:: Increase R knee AROM 0-120 degrees R knee flexion Goal Time Frame: 4-6 Weeks Goal 3:: Be able to walk without an AD without antalgic gait. Goal Time Frame: 4-6 Weeks Goal 4:: Be able to go up and down stairs recip with 1 handrail if needed. Goal Time Frame: 4-6 Weeks Goal 5:: Be able sit to stand X 10 in a row with knees at 90 degrees without UE suuport if needed. Goal Time Frame: 4-6 Weeks - Rehabilitation Potential Rehabilitation Potential: Good - Anticipated Interventions Patient/Client Instruction: Educate patient on: Condition, Plan of Care For the Purpose of:: To decrease pain, To decrease swelling/inflammation, To increase ROM, To improve nutrient delivery to tissue, To improve muscle performance and motor function, To improve ability to perform ADL's, To increase tolerance to activity/condition/position, To improve performance and independence with ADL's, To decrease level of supervision to perform tasks, To improve ability of physical actions for home/community/work/leisure, To improve gait and locomotor functions, To improve health of tissue, To decrease soft tissue restriction, To increase flexibility/ROM, To improve endurance Therapeutic Exercise to Include: Strength training, Endurance training, Flexibilty training, Gait and locomotor training, Passive ROM, Active ROM For the Purpose of:: To decrease pain, To decrease swelling/inflammation, To increase ROM, To improve nutrient delivery to tissue, To improve muscle performance and motor function, To improve ability to perform ADL's, To increase tolerance to activity/condition/position, To improve performance and independence with ADL's, To improve ability of physical actions for home/community/work/leisure, To improve gait and locomotor functions, To improve health of tissue, To decrease soft tissue restriction, To increase flexibility/ROM, To improve balance, To improve safety with gait Functional Training to Include: Gait training For the Purpose of:: To improve gait and locomotor functions, To improve safety with gait Manual Therapy Techniques to Include: Passive ROM, Soft tissue mobilization For the Purpose of:: To decrease pain, To decrease swelling/inflammation, To increase ROM, To improve nutrient delivery to tissue Cryotherapy (ice pack, ice massage): Yes For the Purpose of:: To decrease pain, To decrease swelling/inflammation Thank you for the opportunity to evaluate your patient. For Medicare and Medicare HMO plans, please review the plan of care and approve it. It will need to be FAXED BACK to us at [phone] for Medicare purposes. For Medicare only, by signing this I certify the plan of care. Please let me know if there are questions or concerns regarding this plan of care. Physician Signature: Date:
--- NOTE | 2020-02-21 16:47 | HP.PT.NRP ---
BRYAN WEISS was seen in my office for initial evaluation on 09/27/19. The following Plan of Care was established for this patient: Initial Frequency: 2-3x /Week Initial Duration: 6 Weeks Patient/Client Instruction: Educate patient on: Condition, Plan of Care For the Purpose of:: To decrease pain, To decrease swelling/inflammation, To increase ROM, To improve nutrient delivery to tissue, To improve muscle performance and motor function, To improve ability to perform ADL's, To increase tolerance to activity/condition/position, To improve performance and independence with ADL's, To decrease level of supervision to perform tasks, To improve ability of physical actions for home/community/work/leisure, To improve gait and locomotor functions, To improve health of tissue, To decrease soft tissue restriction, To increase flexibility/ROM, To improve endurance Therapeutic Exercise to Include: Strength training, Endurance training, Flexibilty training, Gait and locomotor training, Passive ROM, Active ROM For the Purpose of:: To decrease pain, To decrease swelling/inflammation, To increase ROM, To improve nutrient delivery to tissue, To improve muscle performance and motor function, To improve ability to perform ADL's, To increase tolerance to activity/condition/position, To improve performance and independence with ADL's, To improve ability of physical actions for home/community/work/leisure, To improve gait and locomotor functions, To improve health of tissue, To decrease soft tissue restriction, To increase flexibility/ROM, To improve balance, To improve safety with gait Functional Training to Include: Gait training For the Purpose of:: To improve gait and locomotor functions, To improve safety with gait Manual Therapy Techniques to Include: Passive ROM, Soft tissue mobilization For the Purpose of:: To decrease pain, To decrease swelling/inflammation, To increase ROM, To improve nutrient delivery to tissue Cryotherapy (ice pack, ice massage): Yes For the Purpose of:: To decrease pain, To decrease swelling/inflammation This patient was last seen in our office 12/20/19. Pertinent comments regarding their Physical therapy will appear below: DC PT due to needing the van to come to therapy and COVID 19. At this point I will be discontinuing this patient from physical therapy. I would be happy to see this patient again in the future if found appropriate by the physician. Thank you! Viktoriya Casas, MPT
== END 2019-12-20 19:00 | disposition home or self-care (01) ==
LOC: PT 15:00
PROVIDERS: Family Provider Internal Medicine; PCP Internal Medicine; Visit Provider Orthopaedic Surgery
DX: Z98.890 Other specified postprocedural states (principal)
CPT/HCPCS: 97016; 97110; 97140; 97161

== ENCOUNTER 2020-08-04 23:39 | Emergency (ER) | payer OTHER, SELFPAY ==
[2020-04-24 16:08] VITALS: BMI 36.6
[2020-08-04 23:40] VITALS: BP 170/78; PULSE 73; RESP 15; TEMP 36.5; O2SAT 98; BMI 37.0
--- NOTE | 2020-08-05 00:09 | CT_ITS ---
STUDY: CT BRAIN WITHOUT CONTRAST REASON FOR EXAM: Female, 60 years old. LEFT HAND TINGLING X 1.5 HOURS, HX CVA IN 2009, CHRONIC RIGHT HAND TINGLING, HX HTN, LYMPH NODE CA, PANCREATIC TUMOR RADIATION DOSAGE (If Supplied By Facility): CTDIvol = ( 44.99 ) mGy, DLP = ( 796.11 ) mGycm TECHNIQUE: Transaxial CT imaging of the brain was performed without administration of intravenous contrast material. Individualized dose optimization techniques were used for this CT. COMPARISON: CT head from 11/26/2018 FINDINGS: Normal soft tissue structures. Normal calvarium. There is mild cerebral atrophy with widening of the extra-axial spaces and ventricular dilatation. There are areas of decreased attenuation within the white matter tracts of the supratentorial brain, consistent with microvascular disease changes. Again visualized is a large area of encephalomalacic changes within the left frontal parietal region. Stable left basal ganglia old lacunar infarct. Normal brainstem. Normal cerebellum. There is no intracranial hemorrhage. There are no findings of an acute ischemic infarction. There is mucoperiosteal inflammatory disease of the paranasal sinuses consistent with mild chronic sinusitis. CT/Brain/Head without Contrast IMPRESSION: Chronic encephalomalacic and involutional changes. No interval change. Electronically Signed: Antonio Mobley, at 1:12 EDT Tel , Service support ,
--- NOTE | 2020-08-05 00:10 | ED.DCSUM_ITS ---
- ER Visit Summary Date of Service: 08/05/20 Chief Complaint: Paresthesias to left hand History of Present Illness: The patient is a 60 F who presents with paresthesias to her left hand that began tonight. Patient states it feels tingling. Patient states it is localized to the hand. Patient denies any weakness. Patient admits to a mild headache. Patient has residual tingling in her right hand from a prior stroke and is concerned that this may be from a stroke. Patient also complains of pain in the left side of her chest. Patient denies any shortness of breath. Patient admits to a mild cough. Patient denies any sputum. Patient admits to some rhinorrhea. Patient denies any fevers or chills. Physical Examination: Vital signs are stable. Patient is afebrile. Patient is in no acute distress. Pupils are equal, round, and reactive to light. Extraocular muscles are intact. Cranial nerves II through XII are intact. Strength is 5/5 bilateral in the upper and lower extremities. Sensation was slightly limited to light touch in the ulnar distribution of the left upper extremity. There are no sensory deficits of the lower extremity. There is no calf tenderness or edema. Heart was regular rate and rhythm. Lungs are clear and equal bilateral. Abdomen is soft. Bowel sounds are normal. There is no tenderness. Test Results: EKG shows normal sinus rhythm with a rate of 63. There are no acute ST or T wave changes. There are no changes compared to previous EKG dated 08/24/2019. Portable chest x-ray is obtained. There is no acute cardiopulmonary process. CT scan of the brain was obtained. There are chronic changes but no acute intracranial abnormality. These were interpreted by the radiologist and reviewed by myself. CBC and comprehensive metabolic profile was obtained and was within normal limits. Urinalysis shows leukocyte esterase of 500 with 10-25 white blood cells. Troponin was normal. Emergency Department Course and Treatment: Patient was advised of her findings. I feel this is more of a peripheral neuropathy causing paresthesias of her left hand. Patient was given a dose of Bactrim here. Patient was given a prescription for Bactrim. Patient was instructed to follow-up with her primary care physician in 5 to 7 days. Patient understood and was agreeable with the plan. All questions were answered. Disposition: Discharge home Impression: 1. Paresthesias 2. Urinary tract infection This note was generated with [employer] dictation software. It may contain incorrect words, spelling, and punctuation that were not noted in review of the chart prior to signing ED Disposition - Plan for ED Patient: Disposition: Home or Assisted Living Diagnosis: Paresthesias, Urinary tract infection Instructions: ED Paraesthesias, ED CYSTITIS Female Adult Prescriptions: Smz/Tmp Ds [Bactrim Ds] 1 tab PO BID #6 tab Prescription Printed Referrals: Berto Najera MD [Primary Care Provider] - 5-7 Days
--- NOTE | 2020-08-05 00:35 | RAD_ITS ---
STUDY: X-RAY CHEST REASON FOR EXAM: Female, 60 years old. LEFT HAND TINGLING AND BILATERAL RIB PAIN. NO KNOWN INJURY TECHNIQUE: AP COMPARISON: 03/09/2012. FINDINGS: There is a left Port-A-Cath with tip tracking into the left brachiocephalic vein region. The lungs are clear and expanded. There is no demonstrated pleural abnormality. Normal size heart. Normal mediastinum and lux. Normal visualized pulmonary arteries. Normal visualized aortic arch and descending thoracic aorta. There are diffuse degenerative changes of the visualized thoracic spine. Normal visualized ribs, clavicles, and shoulders. There is no demonstrated abnormality of the visualized soft tissue structures of the upper abdomen. RAD/Chest 1 View (Portable) IMPRESSION: Negative x-ray examination of the chest. Electronically Signed: Antonio Mobley, at 1:13 EDT Tel , Service support ,
[2020-08-05 01:21] LABS: Absolute Lymphocyte Count 2.07 X10^3/uL (0.83-4.51); Absolute Neutrophil Count 5.5 X10^3/uL (2.0-7.7); Basophil# 0.05 X10^3/uL; Basophil% 0.6 % (0-1); Eosinophils% 3.5 % (0-5); Hematocrit 40.2 % (37-47); Hemoglobin 13.2 g/dL (12.0-15.0); Lymphocyte # 2.07 X10^3/ul (4.0); Lymphocyte % 24.2 % (19-41); Mean Corp Hgb Conc 32.8 g/dL (32-36); Mean Corpuscular Volume 88.4 fL (81-99); Mean Platelet Vol. 10.8 fl (6.2-12.0); Monocyte# 0.58 X10^3/uL; Monocyte% 6.8 % (0-10); NRBC Flagged by Analyzer 0 % (0-5); Neutrophil # 5.53 X10^3/uL (2.7-7.7); Neutrophil % 64.7 % (47-70); Platelet Count 272 K/mm3 (150-450); RBC Distribution Width CV 13.2 % (11.6-14.6); RBC Distribution Width SD 42.6 fl (35.1-43.9); Red Blood Count 4.55 M/mm3 (4.2-5.4); White Blood Count 8.6 K/mm3 (4.4-11.0)
[2020-08-05 01:29] LABS: Bacteria 0 SEEN /hpf (None Seen); Mucous, Urine 0 SEEN /hpf (<or=2+)
[2020-08-05 01:40] LABS: ALB/GLOB Ratio 1.3 RATIO (0.9-2.4); AST(SGOT) 10 U/L (15-37); Alanine Aminotransfer ALT/SGPT 19 U/L (13-56); Albumin, Serum 3.6 g/dL (3.2-5.0); Alkaline Phosphatase 103 U/L (45-117); Anion Gap 5 (5-15); BUN 12 mg/dL (7-18); BUN/Creat Ratio 9.8 RATIO (10-20); Calcium,Total 8.7 mg/dL (8.5-10.1); Chloride 108 mmol/L (98-107); Creatinine, Serum 1.22 mg/dL (0.55-1.02); EST Glomerular Filtration Rate 48 mL/min (>60); Est Glom Filt Rate - Afr Amer 57 mL/min (>60); Estimated Creatinine Clearance 37.81 ml/min; Globulin 2.7 g/dL (2.2-4.2); Glucose 120 mg/dL (74-106); Protein, Total 6.3 g/dL (6.4-8.2); Sodium Level 141 mmol/L (136-145)
[2020-08-05 01:51] LABS: Color, Urine Yellow (Yellow); Glucose, Dipstick Normal (Normal); Ketone-Dipstick Negative (Negative); Leukocyte Esterase-Dipstick 500 /ul (Negative); Nitrite-Dipstick Negative (Negative); Occult Blood-Urine 10 /ul (Negative); Protein-Dipstick Negative (Negative); Urine Bilirubin Dipstick Negative (Negative); Urine Clarity Clear (Clear); Urine Urobilinogen Normal (Normal)
[2020-08-05 01:57] LABS: Red Blood Cells-Urine 0-5 SEEN /hpf (0-5); Squamous Epithelial Cells - UA 0-5 SEEN /hpf (5-10); White Blood Cells 10-25 SEEN /hpf (0-5)
[2020-08-05 02:13] VITALS: BP 172/77; PULSE 66; RESP 16; O2SAT 100
[2020-08-05] MEDS: Smz/Tmp Ds Tablet 1 TABLET PO (03:34)
--- NOTE | 2020-08-05 03:41 | ED.RN ---
Addendum entered by Magalie Parsons 08/05/20 03:42: PT DECIDED TO WALK HOME. Original Note: PTS PORT WAS FLUSHED WITH HEPARIN PER PROTOCOL. IV REMOVED WITHOUT PROBLEMS. PT TOLERATED PROCEDURE WELL. PT WAITING FOR TAXI.
== END 2020-08-05 03:43 | disposition home or self-care (01) ==
PROVIDERS: Emergency Provider Emergency Medicine; PCP Internal Medicine
DX: R20.2 Paresthesia of skin (principal); N39.0 Urinary tract infection, site not specified; R07.9 Chest pain, unspecified; I69.398 Other sequelae of cerebral infarction; Z79.82 Long term (current) use of aspirin; Z79.899 Other long term (current) drug therapy
CPT/HCPCS: 36591; 70450; 71045; 80053; 81001; 84484; 85025; 93005; 99284; A4216

== ENCOUNTER → 2021-04-18 15:19 | Outpatient (CLI) | payer SELFPAY ==
[2021-04-18 14:48] VITALS: BMI 36.3
[2021-04-18 15:50] LABS: Absolute Lymphocyte Count 2.09 X10^3/uL (0.83-4.51); Absolute Neutrophil Count 5.4 X10^3/uL (2.0-7.7); Basophil# 0.07 X10^3/uL; Basophil% 0.9 % (0-1); Eosinophil# 0.19 X10^3/uL; Eosinophils% 2.3 % (0-5); Hemoglobin 13.3 g/dL (12.0-15.0); Lymphocyte # 2.09 X10^3/ul (0.83-4.51); Lymphocyte % 25.5 % (19-41); Mean Corp Hgb Conc 34.1 g/dL (32-36); Mean Corpuscular Hgb 29.8 pg (27.0-32.0); Mean Corpuscular Volume 87.2 fL (81-99); Mean Platelet Vol. 10.9 fl (6.2-12.0); Monocyte# 0.43 X10^3/uL; Monocyte% 5.2 % (0-10); NRBC Flagged by Analyzer 0 % (0-5); Neutrophil % 65.7 % (47-70); Platelet Count 314 K/mm3 (150-450); RBC Distribution Width CV 13.1 % (11.6-14.6); RBC Distribution Width SD 41.2 fl (35.1-43.9); Red Blood Count 4.47 M/mm3 (4.2-5.4); White Blood Count 8.2 K/mm3 (4.4-11.0)
[2021-04-18 16:28] LABS: Hemoglobin A1c 5.6 % (3.8-5.6)
[2021-04-18 16:34] LABS: ALB/GLOB Ratio 1.3 RATIO (0.9-2.4); AST(SGOT) 11 U/L (15-37); Alanine Aminotransfer ALT/SGPT 20 U/L (13-56); Albumin, Serum 3.5 g/dL (3.2-5.0); Alkaline Phosphatase 115 U/L (45-117); Anion Gap 7 (5-15); BUN 22 mg/dL (7-18); BUN/Creat Ratio 16.7 RATIO (10-20); Calcium,Total 8.6 mg/dL (8.5-10.1); Chloride 107 mmol/L (98-107); Cholesterol 226 mg/dL (200); Creatinine, Serum 1.32 mg/dL (0.55-1.02); EST Glomerular Filtration Rate 43 mL/min (>60); Est Glom Filt Rate - Afr Amer 52 mL/min (>60); Globulin 2.7 g/dL (2.2-4.2); Glucose 121 mg/dL (74-106); High Density Lipoprotein 38 mg/dL; Potassium 3.9 mmol/L (3.5-5.1); Protein, Total 6.2 g/dL (6.4-8.2); Sodium Level 142 mmol/L (136-145); Triglycerides 364 mg/dL; Very Low Density Lipoprotein 73 mg/dL (5-40)
== END ==
PROVIDERS: PCP Internal Medicine; Referring Provider Physician Assistant; Visit Provider Physician Assistant
DX: I12.9 Hypertensive chronic kidney disease with stage 1 through stage 4 chronic kidney disease, or unspecified chronic kidney disease (principal); N18.30 Chronic kidney disease, stage 3 unspecified; R51.9 Headache, unspecified; Z86.73 Personal history of transient ischemic attack (TIA), and cerebral infarction without residual deficits
CPT/HCPCS: 36415; 80053; 80061; 83036; 85025

== ENCOUNTER 2021-08-20 13:25 | Emergency (ER) | payer SELFPAY ==
[2021-08-20 13:26] VITALS: BP 185/96; PULSE 77; RESP 18; TEMP 37.2; O2SAT 98; BMI 36.8
[2021-08-20 13:45] VITALS: O2SAT 98
--- NOTE | 2021-08-20 14:32 | EX.ED.DYSGE1 ---
HPI History of Present Illness Chief Complaint: Cough Informant: patient Narrative Narrative: 61-year-old female presents to the emergency room with bilateral hearing loss and left ear pain. She states that she has been sick with a URI since July 25. She states that her nasal drainage has been yellow but over the past couple days is doing clear. States she believes she has earwax in each ear. No drainage from the ears. [facility] Medical History Colitis COVID-19 vaccine series completed Depressive disorder Difficulty balancing Enteritis History of stroke Hyperlipidemia Knee pain Limb weakness Non-Hodgkin lymphoma in remission Rhinitis Severe headache Stroke Home Medications aspirin 325 mg tablet,delayed release 325 mg PO DAILY tab 05/30/19 [History Last Taken 11/13/19] multivitamin 1 tab PO DAILY 05/30/19 [History Last Taken Unknown] acetaminophen 1,000 mg PO Q6H PRN PRN 12/11/19 [History Last Taken Unknown] amlodipine 5 mg tablet 5 mg PO DAILY #90 tab 04/18/21 [Rx Last Taken Unknown] citalopram 40 mg tablet 40 mg PO DAILY #90 tab 04/18/21 [Rx Last Taken Unknown] fluticasone propionate 50 mcg/actuation nasal spray,suspension 2 spray INTRANASAL DAILY #47.4 g 04/18/21 [Rx Last Taken Unknown] simvastatin 10 mg tablet 10 mg PO QHS #90 tab 04/18/21 [Rx Last Taken Unknown] sumatriptan succinate 25 mg tablet See Rx Instructions .ROUTE .COMPLEX #20 tab 04/18/21 [Rx Last Taken Unknown] handicap placard See Rx Instructions .ROUTE .COMPLEX #1 unit 04/22/21 [Rx Last Taken Unknown] cefdinir 300 mg PO BID 10 Days #20 cap 08/20/21 [Rx Last Taken Unknown] Allergy/AdvReac Type Severity Reaction Status Date / Time No Known Allergies Allergy Verified 08/20/21 13:29 Family History Father Hypertension CVA (cerebral vascular accident) Mother Diabetes Hypertension CVA (cerebral vascular accident) Surgical History History of History of delivery History of colonoscopy History of tonsillectomy History of total left knee replacement History of total left knee replacement History of total right knee replacement (~09/2019) S/P left rotator cuff repair S/P right knee arthroscopy Social History Smoking Status: Never smoker alcohol intake: never substance use type: does not use what type of physical activity do you participate in: none ROS ROS ED Constitutional Constitutional ED: Denies chills, fever(s) or weight loss Eyes Eyes: Denies change in vision or diplopia ENT ENT ED: Reports ear pain and rhinorrhea; Denies sore throat Cardiovascular Cardiovascular: Denies chest pain, orthopnea, palpitations or racing heartbeat Respiratory/Chest Respiratory/Chest: Reports cough; Denies dyspnea or orthopnea Gastrointestinal Gastrointestinal: Denies abdominal pain, diarrhea, nausea or vomiting Genitourinary Genitourinary ED: Denies dysuria, hematuria or urinary frequency Musculoskeletal Musculoskeletal: Denies arthralgias or myalgias Integumentary Denies abscess or rash Neurologic Neurologic: Denies headache(s) or weakness Psychiatric Psychiatric: Denies anxiety, depression, suicidal ideation or suicidal thoughts Endocrine Endocrinology: Denies polydipsia, polyphagia or polyuria Allergic/Immunologic Allergic/Immunologic ED: Denies mouth swelling, tongue swelling or urticaria EXAM Physical Exam Const Vital Signs: 08/20/21 13:26 08/20/21 13:45 Temperature 98.9 F Temperature Source Temporal Pulse Rate 77 Respiratory Rate 18 Respiratory Effort Short of Breath Respiratory Depth Normal Respiratory Pattern Normal Blood Pressure 185/96 H Blood Pressure Mean 125 Pulse Ox 98 Oxygen Delivery Method Room Air Room Air Positive well nourished, well developed and obese General Appearance ED: well developed Nutritional Appearance: obese HEENT Reports normocephalic, head/scalp atraumatic and moist mucous membranes HEENT Narrative: Bilateral cerumen impaction Negative for trauma Eyes PERRL and EOMs intact bilaterally Neck no lymphadenopathy, supple and no JVD Resp normal respiratory effort and clear to auscultation bilaterally Cardio regular rate, regular rhythm and no murmurs GI normal to inspection, nondistended, normoactive bowel sounds and non-tender Palpation: soft Back/Spine no CVA tenderness and normal ROM Extremity normal to inspection General Extremety ED: Negative for edema General Extremity: Negative for edema Neuro oriented x3 and CN's II-XII intact bilaterally Sensorium / Orientation: alert Motor Exam: strength 5/5 throughout Psych mental status grossly normal Mood & Affect: Negative for depressed or tearful Skin no rashes or lesions noted and no wounds MDM MDM MDM Narrative Medical decision making narrative: Warm water irrigation was used to clear the ear canal of cerumen. Afterwards I was able to visualize the tympanic membranes which are bilaterally erythematous bulging and loss of landmarks. I do not see any evidence of perforation. Patient will be started on cefdinir would recommend follow-up with primary care return if worsening or concerns Discharge Plan Triage Chief Complaint: Cough ED Provider: Nacho Del Real Dx/Rx/DC Orders Clinical Impression: Bilateral impacted cerumen, Bilateral acute otitis media Instructions: ED Otitis Media Antibiotic ... Prescriptions: New cefdinir 300 mg capsule 300 mg PO BID 10 Days Qty: 20 RF: 0 No Action multivitamin Tablet 1 tab PO DAILY RF: 0 aspirin 325 mg tablet,delayed release (DR/EC) 325 mg PO DAILY RF: 0 amlodipine 5 mg tablet 5 mg PO DAILY Qty: 90 RF: 1 sumatriptan succinate 25 mg tablet See Rx Instructions .ROUTE .COMPLEX Qty: 20 RF: 1 simvastatin 10 mg tablet 10 mg PO QHS Qty: 90 RF: 1 fluticasone propionate [Flonase Allergy Relief] 50 mcg/actuation spray,suspension 2 spray INTRANASAL DAILY Qty: 47.4 RF: 1 citalopram 40 mg tablet 40 mg PO DAILY Qty: 90 RF: 1 acetaminophen 500 MG tablet 1,000 mg PO Q6H PRN PRN (Reason: Pain Or Fever) RF: 0 handicap placard See Rx Instructions .ROUTE .COMPLEX Qty: 1 RF: 0 Primary Care Provider: Berto Najera Referrals: Berto Najera MD [Primary Care Provider] -
[2021-08-20 14:41] VITALS: RESP 18
== END 2021-08-20 14:50 | disposition home or self-care (01) ==
PROVIDERS: Emergency Provider Emergency Medicine; PCP Internal Medicine
DX: H61.23 Impacted cerumen, bilateral (principal); H66.93 Otitis media, unspecified, bilateral; E78.5 Hyperlipidemia, unspecified; F32.A Depression, unspecified; E66.9 Obesity, unspecified; Z68.36 Body mass index [BMI] 36.0-36.9, adult; Z79.82 Long term (current) use of aspirin; Z79.899 Other long term (current) drug therapy; Z86.73 Personal history of transient ischemic attack (TIA), and cerebral infarction without residual deficits
CPT/HCPCS: 69209; 99283

== ENCOUNTER 2022-01-12 13:53 | Outpatient (CLI) | payer MEDICAID, SELFPAY ==
[2022-01-12 15:11] LABS: Absolute Lymphocyte Count 2.11 X10^3/uL (0.83-4.51); Absolute Neutrophil Count 7.3 X10^3/uL (2.0-7.7); Basophil# 0.07 X10^3/uL; Basophil% 0.7 % (0-1); Eosinophil# 0.35 X10^3/uL; Eosinophils% 3.3 % (0-5); Hematocrit 42.8 % (37-47); Lymphocyte # 2.11 X10^3/ul (0.83-4.51); Lymphocyte % 20.2 % (19-41); Mean Corp Hgb Conc 32.7 g/dL (32-36); Mean Corpuscular Volume 88.8 fL (81-99); Mean Platelet Vol. 10.8 fl (6.2-12.0); Monocyte# 0.55 X10^3/uL; Monocyte% 5.3 % (0-10); NRBC Flagged by Analyzer 0 % (0-5); Neutrophil # 7.33 X10^3/uL (2.7-7.7); Neutrophil % 69.9 % (47-70); Platelet Count 348 K/mm3 (150-450); RBC Distribution Width CV 13.2 % (11.6-14.6); RBC Distribution Width SD 42.6 fl (35.1-43.9); Red Blood Count 4.82 M/mm3 (4.2-5.4); White Blood Count 10.5 K/mm3 (4.4-11.0)
[2022-01-12 15:46] LABS: ALB/GLOB Ratio 1.5 RATIO (0.9-2.4); AST(SGOT) 11 U/L (15-37); Alanine Aminotransfer ALT/SGPT 23 U/L (13-56); Alkaline Phosphatase 95 U/L (45-117); Anion Gap 5 (5-15); BUN 20 mg/dL (7-18); Calcium,Total 8.9 mg/dL (8.5-10.1); Chloride 105 mmol/L (98-107); Cholesterol 221 mg/dL (200); Creatinine, Serum 1.05 mg/dL (0.55-1.02); EST Glomerular Filtration Rate 56 mL/min (>60); Est Glom Filt Rate - Afr Amer 68 mL/min (>60); Globulin 2.7 g/dL (2.2-4.2); Glucose 103 mg/dL (74-106); High Density Lipoprotein 48 mg/dL; Potassium 4.2 mmol/L (3.5-5.1); Protein, Total 6.7 g/dL (6.4-8.2); Sodium Level 140 mmol/L (136-145); Triglycerides 161 mg/dL; Very Low Density Lipoprotein 32 mg/dL (5-40)
== END 2022-01-12 23:59 | disposition home or self-care (01) ==
LOC: BIMLAB 13:57
PROVIDERS: PCP Internal Medicine; Referring Provider Internal Medicine; Visit Provider Internal Medicine
DX: E78.5 Hyperlipidemia, unspecified (principal); I10 Essential (primary) hypertension
CPT/HCPCS: 36415; 80053; 80061; 85025

== ENCOUNTER 2022-04-27 11:40 | Emergency (ER) | payer MEDICAID, SELFPAY ==
[2022-04-27 11:41] VITALS: BP 143/104; PULSE 82; RESP 16; TEMP 36.4; O2SAT 98; BMI 37.1
[2022-04-27 11:42] VITALS: BP 143/104; PULSE 82; RESP 16; TEMP 36.4; O2SAT 98
[2022-04-27 11:43] VITALS: BP 143/104; PULSE 82; RESP 16; TEMP 36.4; O2SAT 98
--- NOTE | 2022-04-27 12:03 | EDS_ITS ---
HPI History of Present Illness Chief Complaint: Cough Informant: patient Narrative Narrative: 61-year-old female presenting with cough. She states this started approximately 4 weeks ago. She has had a nonproductive cough. She has tried Mucinex and continues to have cough. She denies shortness of breath or chest pain. Denies fever. She is vaccinated for COVID. [facility] Medical History Chronic sinusitis Colitis COVID-19 vaccine series completed Depressive disorder Dermatitis Difficulty balancing Enteritis Hearing loss History of stroke Hyperlipidemia Intertriginous dermatitis associated with moisture Knee pain Limb weakness Nasal congestion Nasal pain Non-Hodgkin lymphoma in remission Rhinitis Severe headache Stroke Home Medications multivitamin 1 tab PO DAILY vitamin 05/30/19 [History Last Taken Unknown] acetaminophen 500 mg tablet 1,000 mg PO Q6H PRN PRN Pain Or Fever 12/11/19 [History Last Taken Unknown] amlodipine 5 mg tablet 5 mg PO DAILY htn #90 tabs 01/12/22 [Rx Last Taken Unknown] citalopram 40 mg tablet 40 mg PO DAILY depression #90 tabs 01/12/22 [Rx Last Taken Unknown] fluticasone propionate 50 mcg/actuation nasal spray,suspension (Flonase Allergy Relief) 2 spray intranasal DAILY congestion #47.4 grams 01/12/22 [Rx Last Taken Unknown] guaifenesin 1,200 mg tablet, extended release 12 hr (Mucinex) 1,200 mg PO BID #90 tabs 01/12/22 [Rx Last Taken Unknown] handicap placard See Rx Instructions .Route .COMPLEX #1 unit 01/12/22 [Rx Last Taken Unknown] simvastatin 20 mg tablet 20 mg PO QHS cholesterol #90 tabs 01/12/22 [Rx Last Taken Unknown] sumatriptan succinate 25 mg tablet See Rx Instructions .Route .COMPLEX #20 tabs 01/12/22 [Rx Last Taken Unknown] aspirin 325 mg tablet,delayed release 325 mg PO DAILY cva #90 tabs 02/04/22 [Rx Last Taken Unknown] ipratropium bromide 21 mcg (0.03 %) nasal spray 2 spray intranasal BID PRN allergy symptoms/ Nasal congestion #30 mL 02/04/22 [Rx Last Taken Unknown] nystatin 100,000 unit/gram topical powder 1 applic topical TID #60 grams 02/04/22 [Rx Last Taken Unknown] amoxicillin 500 mg tablet 500 mg PO TID #30 tabs 04/27/22 [Rx Last Taken Unknown] benzonatate 100 mg capsule 100 mg PO TID PRN cough #20 caps 04/27/22 [Rx Last Taken Unknown] Allergy/AdvReac Type Severity Reaction Status Date / Time No Known Allergies Allergy Verified 04/27/22 11:40 Family History Father Hypertension CVA (cerebral vascular accident) Mother Diabetes Hypertension CVA (cerebral vascular accident) Surgical History History of History of delivery History of colonoscopy History of tonsillectomy History of total left knee replacement History of total left knee replacement History of total right knee replacement (~09/2019) S/P left rotator cuff repair S/P right knee arthroscopy Social History Smoking Status: Never smoker alcohol intake: never substance use type: does not use what type of physical activity do you participate in: none ROS ROS ED Constitutional Constitutional ED: Denies fever(s) Eyes Eyes: Denies change in vision ENT ENT ED: Reports rhinorrhea; Denies sore throat Cardiovascular Cardiovascular: Denies chest pain or palpitations Respiratory/Chest Respiratory/Chest: Reports cough; Denies dyspnea Gastrointestinal Gastrointestinal: Denies abdominal pain, diarrhea, nausea or vomiting Genitourinary Genitourinary ED: Denies dysuria Musculoskeletal Musculoskeletal: Denies myalgias Integumentary Denies rash Neurologic Neurologic: Denies headache(s) Psychiatric Psychiatric: Denies suicidal thoughts EXAM Physical Exam Const Vital Signs: 04/27/22 11:41 04/27/22 11:42 04/27/22 12:12 Temperature 97.6 F L 97.6 F L Temperature Source Temporal Temporal Pulse Rate 82 82 Respiratory Rate 16 16 Respiratory Effort Non-Labored Blood Pressure 143/104 H 143/104 H Blood Pressure Mean 117 Pulse Ox 98 98 Oxygen Delivery Method Room Air Room Air 04/27/22 11:43 Temperature 97.6 F L Temperature Source Temporal Pulse Rate 82 Respiratory Rate 16 Respiratory Effort Blood Pressure 143/104 H Blood Pressure Mean Pulse Ox 98 Oxygen Delivery Method Room Air Positive well nourished and well developed General Appearance ED: well developed HEENT Reports normocephalic, head/scalp atraumatic, TM's clear and other rhinorrhea other Tympanic Membrane ED: Yes TM's clear left (Left TM erythematous and bulging) Eyes PERRL and EOMs intact bilaterally Neck supple General: Negative for tenderness Chest Wall inspection of chest normal Resp normal respiratory effort and clear to auscultation bilaterally Cardio regular rate and regular rhythm GI non-tender and non-distended Palpation: soft; Negative for guarding or rebound tenderness present no CVA tenderness Extremity normal to inspection Neuro oriented x3 Sensorium / Orientation: alert Psych mental status grossly normal MDM MDM MDM Narrative Medical decision making narrative: Chest x-ray read by myself and radiology shows no acute process. CBC, chemistries are unremarkable. Troponin is negative. Patient is feeling improved on reevaluation. She is given prescription for amoxicillin due to otitis media and Tessalon Perles. Advised to follow up with her primary care physician. Advised return to the ED for worsening complaints. Lab Data Attestation: I reviewed the patient's lab results. Labs: Laboratory Results - last 24 hr 04/27/22 04/27/22 12:15 12:15 WBC 8.4 RBC 4.89 Hgb 14.1 Hct 42.5 MCV 86.9 MCH 28.8 MCHC 33.2 RDW Std Deviation 40.4 RDW Coeff of Nita 12.8 Plt Count 339 MPV 10.3 Immature Gran % (Auto) 0.400 Neut % (Auto) 69.2 Lymph % (Auto) 21.6 Atkinson % (Auto) 5.5 Eos % (Auto) 2.7 Baso % (Auto) 0.6 Absolute Neuts (auto) 5.9 Absolute Lymphs (auto) 1.82 Nucleated RBC % 0 Sodium 142 Potassium 4.5 Chloride 110 H Carbon Dioxide 29.0 Anion Gap 3 L BUN 13 Creatinine 1.10 H Estim Creat Clear Calc 39.50 Est GFR (MDRD) Af Amer 64 Est GFR (MDRD) Non-Af 53 L BUN/Creatinine Ratio 11.8 Glucose 114 H Calcium 9.1 Troponin I High Sens 5 Radiography Chest X-Ray - ED: 2 View, Read by ED Physician and Read by Radiologist Diagnostic Testing: Clinical Impression(s) from Imaging Studies Chest X-Ray 04/27/22 12:25 IMPRESSION: No acute process Electronically Signed: Rojas Hill MD at 13:16 EDT , Discharge Plan Triage Chief Complaint: Cough ED Provider: Sara Lux Dx/Rx/DC Orders Clinical Impression: Bronchitis, Otitis media Instructions: ED Bronchitis, No Antibiotic (Adult), ED Otitis Media Antibiotic ... Prescriptions: New benzonatate 100 mg capsule 100 mg PO TID PRN (Reason: cough) Qty: 20 0RF amoxicillin 500 mg tablet 500 mg PO TID Qty: 30 0RF No Action multivitamin Tablet 1 tab PO DAILY handicap placard See Rx Instructions .ROUTE .COMPLEX Qty: 1 0RF Rx Instructions: Duration 5 years for reduced mobility amlodipine 5 mg tablet 5 mg PO DAILY Qty: 90 1RF citalopram 40 mg tablet 40 mg PO DAILY Qty: 90 1RF sumatriptan succinate 25 mg tablet See Rx Instructions .ROUTE .COMPLEX Qty: 20 1RF Dose Instruction: take 1 tablet by mouth if needed AT ONSET OF HEADACHE may repeat in 2 hours IF headache PERSISTS maximum daily dose of 4 tablets ( 100 lily Rx Instructions: take 1 tablet by mouth if needed AT ONSET OF HEADACHE may repeat in 2 hours IF headache PERSISTS maximum daily dose of 4 tablets ( 100 lily Mucinex 1,200 mg tablet extended release 12hr 1,200 mg PO BID Qty: 90 2RF fluticasone propionate [Flonase Allergy Relief] 50 mcg/actuation spray,suspension 2 spray INTRANASAL DAILY Qty: 47.4 1RF ipratropium bromide 21 mcg (0.03 %) spray,non-aerosol 2 spray intranasal BID PRN (Reason: allergy symptoms/ Nasal congestion) Qty: 30 2RF Rx Instructions: administer into each nostril nystatin 100,000 unit/gram powder 1 applic topical TID Qty: 60 5RF aspirin 325 mg tablet,delayed release (DR/EC) 325 mg PO DAILY Qty: 90 2RF acetaminophen 500 MG tablet 1,000 mg PO Q6H PRN PRN (Reason: Pain Or Fever) simvastatin 20 mg tablet 20 mg PO QHS Qty: 90 2RF Primary Care Provider: Berto Najera Referrals: Berto Najera MD [Primary Care Provider] - Disposition Disposition: Home, Self Care
[2022-04-27 12:21] LABS: Absolute Lymphocyte Count 1.82 X10^3/uL (0.83-4.51); Absolute Neutrophil Count 5.9 X10^3/uL (2.0-7.7); Basophil# 0.05 X10^3/uL; Basophil% 0.6 % (0-1); Eosinophil# 0.23 X10^3/uL; Eosinophils% 2.7 % (0-5); Hematocrit 42.5 % (37-47); Hemoglobin 14.1 g/dL (12.0-15.0); Lymphocyte # 1.82 X10^3/ul (0.83-4.51); Lymphocyte % 21.6 % (19-41); Mean Corp Hgb Conc 33.2 g/dL (32-36); Mean Corpuscular Hgb 28.8 pg (27.0-32.0); Mean Corpuscular Volume 86.9 fL (81-99); Mean Platelet Vol. 10.3 fl (6.2-12.0); Monocyte# 0.46 X10^3/uL; Monocyte% 5.5 % (0-10); NRBC Flagged by Analyzer 0 % (0-5); Neutrophil # 5.85 X10^3/uL (2.7-7.7); Neutrophil % 69.2 % (47-70); Platelet Count 339 K/mm3 (150-450); RBC Distribution Width CV 12.8 % (11.6-14.6); RBC Distribution Width SD 40.4 fl (35.1-43.9); Red Blood Count 4.89 M/mm3 (4.2-5.4); White Blood Count 8.4 K/mm3 (4.4-11.0)
--- NOTE | 2022-04-27 12:25 | RAD_ITS ---
STUDY: X-RAY CHEST REASON FOR EXAM: Female, 61 years old. patient complains of cough x 4 weeks, Hx of NHL in the past, patient states now CA free TECHNIQUE: PA and lateral views of the chest. COMPARISON: August 05, 2020. FINDINGS: Left chest port noted with the catheter in the brachiocephalic vein. The lungs are clear and expanded. There is no demonstrated pleural abnormality. Normal size heart. Normal mediastinum and lux. Normal visualized pulmonary arteries. There is atherosclerotic tortuosity of the aortic arch and descending thoracic aorta. There are diffuse degenerative changes of the visualized thoracic spine. Normal visualized ribs, clavicles, and shoulders. There is no demonstrated abnormality of the visualized soft tissue structures of the upper abdomen. RAD/Chest PA and Lateral IMPRESSION: No acute process Electronically Signed: Rojas Hill MD at 13:16 EDT ,
[2022-04-27 12:47] LABS: Anion Gap 3 (5-15); BUN 13 mg/dL (7-18); BUN/Creat Ratio 11.8 RATIO (10-20); Calcium,Total 9.1 mg/dL (8.5-10.1); Chloride 110 mmol/L (98-107); EST Glomerular Filtration Rate 53 mL/min (>60); Est Glom Filt Rate - Afr Amer 64 mL/min (>60); Glucose 114 mg/dL (74-106); Potassium 4.5 mmol/L (3.5-5.1); Sodium Level 142 mmol/L (136-145); Troponin-I HS 5 pg/mL (3.0-54.0)
[2022-04-27] MEDS: AMOXICILLIN 500 MG CAPSULE PO (14:55)
[2022-04-27 14:56] VITALS: BP 128/64; PULSE 72; RESP 15; O2SAT 97
== END 2022-04-27 14:56 | disposition home or self-care (01) ==
PROVIDERS: Emergency Provider Emergency Medicine; PCP Internal Medicine; Visit Provider Emergency Medicine
DX: J40 Bronchitis, not specified as acute or chronic (principal); H66.92 Otitis media, unspecified, left ear; E78.5 Hyperlipidemia, unspecified; F32.A Depression, unspecified; Z79.82 Long term (current) use of aspirin; Z79.899 Other long term (current) drug therapy; Z86.73 Personal history of transient ischemic attack (TIA), and cerebral infarction without residual deficits
CPT/HCPCS: 71046; 80048; 84484; 85025; 87811; 99283